=== PATIENT | male | born 1945 | race African-American/Black ===

== ENCOUNTER 2016-12-30 00:42 | Emergency (ER) | payer MEDICARE, OTHER ==
[~2016-12-30] VITALS: Ht 182.9 cm; Wt 70.0 kg
[2016-12-30] VITALS (7 sets, daily range): BP systolic 145–181; BP diastolic 88–100; PULSE 62–72; RESP 19–23; TEMP 98.6; O2SAT 98–100
[2016-12-30] MEDS ORDERED: SODIUM CHLORIDE 0.9% FLUSH 10 ML FLUSH IVF PRN ×2 (01:00→01:15)
[2016-12-30 01:39] LABS: AUTOMATED NEUTROPHIL # 3.8 TH/MM3 (1.8-7.7); BASOPHIL # 0.1 TH/MM3 (0-0.2); BASOPHIL % 0.8 % (0.0-2.0); EOSINOPHIL # 0.2 TH/MM3 (0-0.4); EOSINOPHIL % 3.1 % (0.0-4.0); HEMATOCRIT 35.1 % (39.0-51.0); HEMO FLAGS DIFF FINAL; LYMPH % 33.2 % (9.0-44.0); LYMPHOCYTE # 2.4 TH/MM3 (1.0-4.8); MEAN CELL VOLUME 86.8 FL (80.0-100.0); MEAN CORPUSCULAR HEMOGLOBIN 28.2 PG (27.0-34.0); MEAN CORPUSCULAR HGB CONC 32.5 % (32.0-36.0); MONO % 9.8 % (0.0-8.0); NEUT % 53.1 % (16.0-70.0); PLATELET COUNT 203 TH/MM3 (150-450); RED BLOOD COUNT 4.05 MIL/MM3 (4.50-5.90); RED CELL DISTRIBUTION WIDTH 14.5 % (11.6-17.2); WHITE BLOOD COUNT 7.1 TH/MM3 (4.0-11.0)
[2016-12-30 01:49] LABS: APTT (PATIENT) 23.5 SEC (24.3-30.1); INTERNATIONAL NORMALIZED RATIO 0.9 RATIO; PROTHROMBIN TIME - PATIENT 10.3 SEC (9.8-11.6)
--- NOTE | 2016-12-30 01:50 | RADRPT ---
EXAM DATE/TIME: 12/30/2016 01:36 [facility] COMPARISON: No previous studies available for comparison. INDICATIONS : Short of breath. MEDICAL HISTORY : None. SURGICAL HISTORY : None. Endo graft ENCOUNTER: Initial ACUITY: 1 day PAIN SCORE: 7/10 LOCATION: Bilateral chest FINDINGS: A single view of the chest demonstrates marked tortuosity and ectasia/aneurysm of the thoracic aorta with endovascular stent graft for treatment of the same. Heart size is normal. Lungs are clear withou t effusion. Osseous structures are intact. CONCLUSION: 1. Plain film findings characteristic of an endovascular stent graft repair for thoracic aortic aneur ysm. 2. Lungs are clear without effusion. Heart size is normal. Dhruv Carver MD on December 30, 2016 at 1:47 Board Certified Radiologist. This report was verified electronically.
[2016-12-30 02:05] LABS: ALKALINE PHOSPHATASE 84 U/L (45-117); TOTAL BILIRUBIN ADULT 0.5 MG/DL (0.2-1.0)
[2016-12-30 02:16] LABS: ALT (GPT) 48 U/L (12-78); ANION GAP 8 MEQ/L (5-15); AST (GOT) 44 U/L (15-37); BICARBONATE 24.9 MEQ/L (21.0-32.0); BLOOD UREA NITROGEN 15 MG/DL (7-18); CHLORIDE 112 MEQ/L (98-107); GLOMERULAR FILTRATION RATE 54 ML/MIN (>89); POTASSIUM 3.7 MEQ/L (3.5-5.1); SODIUM (NA) 145 MEQ/L (136-145)
--- NOTE | 2016-12-30 07:10 | PD ---
HPI Chief Complaint: Respiratory Symptoms Time Seen by Provider: 00:57 Travel History International Travel<30 days: No Contact w/Intl Traveler<30days: No Traveled to known affect area: No History of Present Illness HPI Patient is a 71 year old male who comes in complaining of SOB. He says he has occasional SOB and going to the door and breathing the outside air makes him feel better. He says he believes that the humidity is causing his SOB. He denies any chest pain. He says he just moved here from [place] 5 days ago. He denies nausea or vomiting. He denies cough or cold. He denies fever or chills. PFSH Past Medical History AAA: Yes Cardiac Catheterization: Yes Coronary Artery Disease: Yes Diminished Hearing: No Hypertension: Yes Tetanus Vaccination: Unknown Past Surgical History Other Surgery: Yes (hernia) Social History Alcohol Use: Yes Tobacco Use: No Substance Use: Yes (marijuana) Allergies-Medications (Allergen,Severity, Reaction): Coded Allergies: No Known Allergies (Unverified , 12/30/16) Reported Meds & Prescriptions Reported Meds & Active Scripts Active Active Prescriptions or Reported Medications Unobtainable Review of Systems Except as stated in HPI: all other systems reviewed are Neg General / Constitutional: No: Fever, Chills HENT: No: Headaches, Lightheadedness Cardiovascular: No: Chest Pain or Discomfort Respiratory: Positive: Shortness of Breath, No: Cough Gastrointestinal: No: Nausea, Vomiting Genitourinary: No: Dysuria Musculoskeletal: No: Myalgias Skin: No Rash, No Change in Pigmentation Neurologic: No: Weakness, Dizziness Physical Exam Narrative GENERAL: Awake and alert, in no acute distress. SKIN: Focused skin assessment warm/dry. HEAD: Atraumatic. Normocephalic. EYES: Pupils equal and round. No scleral icterus. ENT: Mucous membranes pink and moist. NECK: Trachea midline. No JVD. CARDIOVASCULAR: Regular rate and rhythm. No murmur appreciated. RESPIRATORY: No accessory muscle use. Clear to auscultation. Breath sounds equal bilaterally. GASTROINTESTINAL: Abdomen soft, non-tender, nondistended. MUSCULOSKELETAL: No obvious deformities. No clubbing. No cyanosis. No edema. NEUROLOGICAL: Awake and alert. No obvious cranial nerve deficits. Motor grossly within normal limits. Normal speech. PSYCHIATRIC: Appropriate mood and affect; insight and judgment normal. Data Data Last Documented VS Vital Signs Date Time Temp Pulse Resp B/P (MAP) Pulse Ox O2 Delivery O2 Flow Rate FiO2 12/30/16 05:00 68 21 145/88 (107) 100 Nasal Cannula 2.00 12/30/16 00:53 98.6 Orders Orders Sodium Chloride 0.9% Flush (Ns Flush) (12/30/16 01:00) Complete Blood Count With Diff (12/30/16 01:11) Comprehensive Metabolic Panel (12/30/16 01:11) B-Type Natriuretic Peptide (12/30/16 01:11) Act Partial Throm Time (Ptt) (12/30/16 01:11) Prothrombin Time / Inr (Pt) (12/30/16 01:11) Troponin I (12/30/16 01:11) Iv Access Insert/Monitor (12/30/16 01:11) Electrocardiogram (12/30/16 01:11) Ecg Monitoring (12/30/16 01:11) Oximetry (12/30/16 01:11) Oxygen Administration (12/30/16 01:11) Chest, Single Ap (12/30/16 01:11) Sodium Chloride 0.9% Flush (Ns Flush) (12/30/16 01:15) D-Dimer (12/30/16 02:24) Ventilation & Perfusion Scan (12/30/16 ) Labs Laboratory Tests Test 12/30/16 01:20 12/30/16 02:35 White Blood Count 7.1 TH/MM3 Red Blood Count 4.05 MIL/MM3 Hemoglobin 11.4 GM/DL Hematocrit 35.1 % Mean Corpuscular Volume 86.8 FL Mean Corpuscular Hemoglobin 28.2 PG Mean Corpuscular Hemoglobin Concent 32.5 % Red Cell Distribution Width 14.5 % Platelet Count 203 TH/MM3 Mean Platelet Volume 7.0 FL Neutrophils (%) (Auto) 53.1 % Lymphocytes (%) (Auto) 33.2 % Monocytes (%) (Auto) 9.8 % Eosinophils (%) (Auto) 3.1 % Basophils (%) (Auto) 0.8 % Neutrophils # (Auto) 3.8 TH/MM3 Lymphocytes # (Auto) 2.4 TH/MM3 Monocytes # (Auto) 0.7 TH/MM3 Eosinophils # (Auto) 0.2 TH/MM3 Basophils # (Auto) 0.1 TH/MM3 CBC Comment DIFF FINAL Differential Comment Prothrombin Time 10.3 SEC Prothromb Time International Ratio 0.9 RATIO Activated Partial Thromboplast Time 23.5 SEC Blood Urea Nitrogen 15 MG/DL Creatinine 1.53 MG/DL Random Glucose 96 MG/DL Total Protein 8.2 GM/DL Albumin 3.1 GM/DL Calcium Level 8.2 MG/DL Alkaline Phosphatase 84 U/L Aspartate Amino Transf (AST/SGOT) 44 U/L Alanine Aminotransferase (ALT/SGPT) 48 U/L Total Bilirubin 0.5 MG/DL Sodium Level 145 MEQ/L Potassium Level 3.7 MEQ/L Chloride Level 112 MEQ/L Carbon Dioxide Level 24.9 MEQ/L Anion Gap 8 MEQ/L Estimat Glomerular Filtration Rate 54 ML/MIN Troponin I LESS THAN 0.02 NG/ML B-Type Natriuretic Peptide 115 PG/ML D-Dimer Quantitative (PE/DVT) 9.46 MG/L [facility] Medical Decision Making Medical Screen Exam Complete: Yes Emergency Medical Condition: Yes Differential Diagnosis Pneumonia vs anxiety vs PE Narrative Course Patient is a 71 year old male who comes in complaining of SOB. Exam shows no acute abnormalities. IV established, labs sent. Labs show an elevated D- dimer. Patient is allergic to contrast dye. VQ scan ordered. Patient is resting comfortably. CXR shows no acute abnormalities. Patient signed out to Dr. Post to follow up scan and disposition the patient. Scripts Unable to Obtain Active Prescriptions or Reported Meds Condition: Stable Dina Atkinson MD Dec 30, 2016 07:10
--- NOTE | 2016-12-30 10:40 | RADRPT ---
EXAM DATE/TIME: 12/30/2016 09:45 [facility] COMPARISON: No previous studies available for comparison. INDICATIONS : Dyspnea. DOSE: 1.6 mCi Tc99m DTPA 8.8 mCi Tc99m MAA MEDICAL HISTORY : Hypertension. Aneurysm, abdominal. Cardiovascular disease SURGICAL HISTORY : Umbilical hernia repair. ENCOUNTER: Initial ACUITY: 1 day PAIN SCALE: 0/10 LOCATION: chest TECHNIQUE: Following five minutes of tidal breathing of DTPA aerosol, planar images of the lungs were performed in eight projections. The patient was then injected with MAA, and eight-view perfusion scan was perf ormed. FINDINGS: There is a homogeneous pattern of aerosol delivery to the periphery of both lungs. No focal ventilat ory defects are seen. Mild central deposition of radiotracer The perfusion lung scan demonstrates a homogenous pattern of uptake in both lungs. No segmental or s ubsegmental defects are seen. CONCLUSION: Normal examination. No significant filling defects are identified on the perfusion images. Martínez Siegel MD on December 30, 2016 at 10:38 Board Certified Radiologist. This report was verified electronically.
--- NOTE | 2016-12-30 11:18 | PD ---
Data Data Last Documented VS Vital Signs Date Time Temp Pulse Resp B/P (MAP) Pulse Ox O2 Delivery O2 Flow Rate FiO2 12/30/16 11:00 62 19 170/91 (117) 100 Nasal Cannula 2.00 12/30/16 00:53 98.6 Orders Orders Sodium Chloride 0.9% Flush (Ns Flush) (12/30/16 01:00) Complete Blood Count With Diff (12/30/16 01:11) Comprehensive Metabolic Panel (12/30/16 01:11) B-Type Natriuretic Peptide (12/30/16 01:11) Act Partial Throm Time (Ptt) (12/30/16 01:11) Prothrombin Time / Inr (Pt) (12/30/16 01:11) Troponin I (12/30/16 01:11) Iv Access Insert/Monitor (12/30/16 01:11) Electrocardiogram (12/30/16 01:11) Ecg Monitoring (12/30/16 01:11) Oximetry (12/30/16 01:11) Oxygen Administration (12/30/16 01:11) Chest, Single Ap (12/30/16 01:11) Sodium Chloride 0.9% Flush (Ns Flush) (12/30/16 01:15) D-Dimer (12/30/16 02:24) Ventilation & Perfusion Scan (12/30/16 ) Labs Laboratory Tests Test 12/30/16 01:20 12/30/16 02:35 White Blood Count 7.1 TH/MM3 Red Blood Count 4.05 MIL/MM3 Hemoglobin 11.4 GM/DL Hematocrit 35.1 % Mean Corpuscular Volume 86.8 FL Mean Corpuscular Hemoglobin 28.2 PG Mean Corpuscular Hemoglobin Concent 32.5 % Red Cell Distribution Width 14.5 % Platelet Count 203 TH/MM3 Mean Platelet Volume 7.0 FL Neutrophils (%) (Auto) 53.1 % Lymphocytes (%) (Auto) 33.2 % Monocytes (%) (Auto) 9.8 % Eosinophils (%) (Auto) 3.1 % Basophils (%) (Auto) 0.8 % Neutrophils # (Auto) 3.8 TH/MM3 Lymphocytes # (Auto) 2.4 TH/MM3 Monocytes # (Auto) 0.7 TH/MM3 Eosinophils # (Auto) 0.2 TH/MM3 Basophils # (Auto) 0.1 TH/MM3 CBC Comment DIFF FINAL Differential Comment Prothrombin Time 10.3 SEC Prothromb Time International Ratio 0.9 RATIO Activated Partial Thromboplast Time 23.5 SEC Blood Urea Nitrogen 15 MG/DL Creatinine 1.53 MG/DL Random Glucose 96 MG/DL Total Protein 8.2 GM/DL Albumin 3.1 GM/DL Calcium Level 8.2 MG/DL Alkaline Phosphatase 84 U/L Aspartate Amino Transf (AST/SGOT) 44 U/L Alanine Aminotransferase (ALT/SGPT) 48 U/L Total Bilirubin 0.5 MG/DL Sodium Level 145 MEQ/L Potassium Level 3.7 MEQ/L Chloride Level 112 MEQ/L Carbon Dioxide Level 24.9 MEQ/L Anion Gap 8 MEQ/L Estimat Glomerular Filtration Rate 54 ML/MIN Troponin I LESS THAN 0.02 NG/ML B-Type Natriuretic Peptide 115 PG/ML D-Dimer Quantitative (PE/DVT) 9.46 MG/L [facility] Medical Record Reviewed: Yes Supervised Visit with DAYNA: No Narrative Course CBC & BMP Diagram 12/30/16 01:20 Total Protein 8.2, Albumin 3.1 L, Calcium Level 8.2 L, Alkaline Phosphatase 84, Aspartate Amino Transf (AST/SGOT) 44 H, Alanine Aminotransferase (ALT/SGPT) 48, Total Bilirubin 0.5 BNP 115 Last 24 hours Impressions Chest X-Ray 12/30/16 0111 Signed Impressions: Service Date/Time: December 01:36 - CONCLUSION: 1. Plain film findings characteristic of an endovascular stent graft repair for thoracic aortic aneurysm. 2. Lungs are clear without effusion. Heart size is normal. Dhruv Carver MD Lung Scan-V Nuclear Medicine 12/30/16 0000 Signed Impressions: Service Date/Time: December 09:45 - CONCLUSION: Normal examination. No significant filling defects are identified on the perfusion images. Martínez Siegel MD The patient is resting comfortably and feels better, is alert and in no distress. The patients results and examination findings were discussed. The repeat examination is unremarkable and benign. The history, exam, diagnostic testing, and current condition do not suggest any significant pathology to warrant further testing, continued ED treatment, admission, or surgical evaluation at this point. The vital signs have been stable. The patient does not have uncontrollable pain, intractable vomiting, or other significant symptoms. The patient's condition is stable and appropriate for discharge. The patient will pursue further outpatient evaluation with a primary care physician or other designated or consulting physician as indicated in the discharge instructions. The patient expressed understanding and was agreeable with this plan. Diagnosis Primary Impression: Shortness of breath Referrals: Isaiah Ren MD, Pedro R MD special events director Kiarra Workman Jr., MD, Vincent G DO special events director Primary Care Physician call for appointment Med/Other Pt SpecificInfo: No Change to Meds Scripts Albuterol 8.5 GM Inh (Proair Hfa 8.5 GM Inh) 90 Mcg/Act Aer 2 PUFF INH Q6H Y for SHORTNESS OF BREATH, #1 INHALER 0 Refills 108 mcg/actuation Prov: Owen Post MD 12/30/16 Disposition: 01 DISCHARGE HOME Condition: Stable Owen Post MD Dec 30, 2016 11:18
[2016-12-30] MEDS ORDERED: ALBUAER3 INH (11:31)
--- NOTE | 2016-12-30 17:51 | EKG ---
Date Performed: 12/30/2016 Time Performed: 01:09:31 PTAGE: 71 years EKG: Sinus rhythm MARKED LEFT AXIS DEVIATION VOLTAGE CRITERIA FOR LVH NONSPECIFIC T-WAVE ABNORMALITY ABNORMAL ECG NO PREVIOUS TRACING DOCTOR: Matteo Canseco Interpretating Date/Time 12/30/2016 17:51:00
== END 2016-12-30 13:15 | disposition home or self-care (01) ==
LOC: NEPC 00:42 → EDBD 00:42 → NEPD 13:15
DX: R06.02 Shortness of breath (principal); I10 Essential (primary) hypertension; R94.31 Abnormal electrocardiogram [ECG] [EKG]; Z86.79 Personal history of other diseases of the circulatory system
CPT/HCPCS: 71010; 78582; 80053; 83880; 84484; 85025; 85379; 85610; 85730; 93005; 99285; A9540; A9567

== ENCOUNTER 2017-07-09 16:57 | Emergency (ER) | payer MEDICARE ==
[~2017-07-09] VITALS: Ht 182.9 cm; Wt 70.0 kg
[~2017-07-09 16:57] MED LIST: ALBUAER3 INH
[2017-07-09 17:08] VITALS: BP 121/65; PULSE 63; RESP 17; TEMP 98.3; O2SAT 99
--- NOTE | 2017-07-09 22:13 | PD ---
HPI Chief Complaint: Complaint Time Seen by Provider: 20:47 Travel History International Travel<30 days: No Contact w/Intl Traveler<30days: No Traveled to known affect area: No History of Present Illness HPI This patient complains of difficulty urinating. Duration 2 weeks. Severity is moderate. He has to strain and then dribbles out small amounts of urine sometimes. Other times he can urinate decently well enough. He is not having any pelvic pain or distention. He doesn't feel like his bladder is overly full at this time. Not having fever. PFSH Past Medical History AAA: Yes Cardiac Catheterization: Yes Coronary Artery Disease: Yes Diminished Hearing: No Hypertension: Yes Past Surgical History Other Surgery: Yes (hernia) Social History Alcohol Use: Yes Tobacco Use: No Substance Use: Yes (marijuana) Allergies-Medications (Allergen,Severity, Reaction): Uncoded Allergies: IV CONTRAST (Allergy, Severe, Anaphylaxis, 12/30/16) Reported Meds & Prescriptions Reported Meds & Active Scripts Active Proair Hfa 8.5 GM Inh (Albuterol Sulfate) 90 Mcg/Act Aer 2 Puff INH Q6H PRN 108 mcg/actuation Review of Systems General / Constitutional: No: Fever HENT: No: Headaches Cardiovascular: No: Chest Pain or Discomfort Physical Exam Narrative GASTROINTESTINAL: Abdomen soft, non-tender, nondistended. Positive bowel sounds. No hepato-splenomegaly, or palpable masses. No guarding. SKIN: Focused skin assessment reveals no rash or ulcers. Skin is warm and dry. Palpation shows no induration or nodules. Psych: Normal mood and affect. Normal insight and judgment. Data Data Last Documented VS Vital Signs Date Time Temp Pulse Resp B/P (MAP) Pulse Ox O2 Delivery O2 Flow Rate FiO2 07/09/17 17:08 98.3 63 17 121/65 (83) 99 MDM Medical Decision Making Medical Screen Exam Complete: Yes Emergency Medical Condition: Yes Medical Record Reviewed: Yes Differential Diagnosis Urinary retention, BPH, urethral stricture Narrative Course I have reviewed the patient's electronic medical record. We discussed urinary retention. He is able to urinate spontaneously and does not need Marin catheter. He has a urologist appointment July 21. Diagnosis Primary Impression: Urinary retention Additional Instructions: Follow up with urologist Med/Other Pt SpecificInfo: Other Disposition: DISCHARGE HOME Condition: Stable Grayson Wasserman MD Jul 09, 2017 22:13
[2017-07-09 22:35] VITALS: BP 122/62
== END 2017-07-09 22:46 | disposition home or self-care (01) ==
LOC: NEPD 16:57
DX: R33.9 Retention of urine, unspecified (principal); I10 Essential (primary) hypertension; I71.4 Abdominal aortic aneurysm, without rupture; Z91.041 Radiographic dye allergy status; F12.90 Cannabis use, unspecified, uncomplicated
CPT/HCPCS: 99281

== ENCOUNTER 2017-10-20 07:30 | Inpatient (IN) ==
[2017-10-21 07:28] VITALS: RESP 20
[2017-10-21 10:16] VITALS: O2SAT 97
[2017-10-21 10:50] VITALS: BP 145/87; TEMP 98
[2017-10-21 10:55] VITALS: PULSE 78
== END 2017-10-21 12:30 | disposition home or self-care (01) ==
LOC: NEPC 07:30 → NEDA 10:55 → HCPC 12:39
PROVIDERS: ADMIT Hospitalist; ATTEND Hospitalist

== ENCOUNTER 2017-10-26 17:49 | Observation (INO) ==
[2017-10-26] MEDS ORDERED: Labetalol HCl Inj 100 MG/20 ML Vial IV.PUSH ONE ×2 (20:26→21:48)
--- NOTE | 2017-10-26 21:17 | XR ---
EXAM DATE: 10/26/2017 9:11 PM EDT AGE/SEX: 72 years / Male INDICATIONS: Chest pain. CLINICAL DATA: This is the patient's sequela encounter. Patient reports that signs and symptoms have been present for 3 days and indicates a pain score of 5/10. MEDICAL/SURGICAL HISTORY: . Thoracic aortic aneurysm. . Umbilical hernia repair. Thoracic aort ic aneurysm repair. COMPARISON: [facility], CHEST 1V SINGLE AP, 10/20/2017. [facility], CHEST SINGLE AP, 12/30/2016. . FINDINGS: There is an aortic stent graft seen at the proximal descending thoracic aorta. There is aneurysmal di latation of the surrounding aorta. This appearance is unchanged from the prior exam. The heart size i s normal. The lungs are clear. The previously seen right perihilar consolidation has cleared. CONCLUSION: Stable chest x-ray with an aortic stent graft in place. The lungs are clear. Electronically signed by: Kevin Carney MD 10/26/2017 9:15 PM EDT
--- NOTE | 2017-10-26 21:17 | ED ---
HPI General Chief complaint: Medical Clearance Stated complaint: high Blood pressure since new meds/per pt Time Seen by Provider: 10/26/17 20:12 Source: patient, RN notes reviewed and old records reviewed Mode of arrival: ambulatory History of Present Illness HPI narrative: 72yM presenting with elevated blood pressure and chest discomfort. The patient states that he was diagnosed with pneumonia earlier in the week and started on levaquin; for the past 2 days he's noticed his blood pressure has been elevated to the 180s/100s but he normally runs in the 140s/ 90s. He admits to occasional substernal discomfort which is non-radiating, gradual onset, mild to moderate, and which he attributes to coughing. Family history non-contributory. Related Data Home Medications Medication Instructions Recorded Confirmed Aspir-81 81 mg PO DAILY 10/20/17 10/26/17 Lipitor 50 mg PO DAILY 10/20/17 10/26/17 metoprolol succinate 100 mg PO DAILY 10/26/17 10/26/17 lisinopril 40 mg PO DAILY 10/27/17 10/27/17 Previous Rx's Medication Instructions Recorded levofloxacin [Levaquin] 750 mg PO DAILY #5 tab 10/21/17 Allergies Allergy/AdvReac Type Severity Reaction Status Date / Time Penicillins Allergy Hives Verified 10/26/17 20:29 IV CONTRAST Allergy Severe Anaphylaxis Uncoded 10/26/17 20:29 Review of Systems Except as stated in HPI: all other systems reviewed are negative Constitutional Denies fever(s) Eyes Denies blurry vision ENT Denies nasal congestion Cardiovascular Denies syncope Respiratory Reports cough Gastrointestinal Denies nausea Genitourinary Denies dysuria Musculoskeletal Denies muscle weakness Neurologic Denies confusion Psychiatric Denies confusion [facility] Medical History Medical History Hypertension (Chronic) Surgical History Surgical History H/O heart artery stent (Acute) Family History Family History Father Family history of cancer Social History Social History Substance History: No History of Abuse Second Hand Smoke Exposure: No Smoking Status: Never smoker Tobacco Type: Cigarettes How Often Do You Have a Drink Containing Alcohol: Never Recent Travel in [facility] within the Last 8 Weeks: No Recent Out of Country Travel within the Last 8 Weeks: No Immunization History Tetanus Immunization: >5 Years Hx Influenza Vaccine This Season: Yes Exam Narrative Exam Narrative: GEN: Well-nourished well-developed male, no acute distress HEENT: NCAT, PERRL CARDIO: Regular rate and rhythm PULM: Diminished at bases bilaterally, no wheezing or rhonchi ABD: Soft, non-tender, non-distended EXT/MS: No lower extremity edema, warm and well-perfused SKIN: No rashes NEURO: GCS 15, A&Ox3, no focal deficits PSYCH: Normal affect Course Initial Documented Vital Signs Temperature 98.1 F 10/26/17 17:56 Pulse Rate 75 10/26/17 17:56 Respiratory Rate 20 10/26/17 17:56 Blood Pressure 206/124 H 10/26/17 17:56 Pulse Oximetry 98 10/26/17 17:56 Last Documented Vital Signs Temperature 98.1 F 10/26/17 17:56 Pulse Rate 71 10/27/17 11:10 Respiratory Rate 17 10/27/17 11:10 Blood Pressure 133/79 10/27/17 11:10 Pulse Oximetry 96 10/27/17 11:10 Sign Out Sign Out Data: Patient Sign Out occurred on 10/26/17 at 23:00. Patient's care was discussed, and care was transferred from Sera Benz DO to Daryl Oliveros MD. Sign Out Comment: Due for 2nd troponin, dose of hydralazine ordered for persistent hypertension. If BP does not improve, will likely need nitro gtt and admission to [facility]. Discussed with Dr. Oliveros. Last updated by Sera Benz DO at 10/26/17 23:00 Post-Handoff Eval: Patient seen and examined by me after sign out at [address] Lamar Torres, is a 72-year-old male presents emergency department with chest pain intermittent shortness of breath. Recent admission for taking his antibiotics because he thinks it is contributing to his high blood pressure. No clinical signs of pneumonia today, chest x-ray negative. Initial EKG troponin negative, nitroglycerin sublingually and transdermally given to control blood pressure and symptoms. He is feeling much better after this. Discussed with him chest pain center observation and will need to follow-up with primary care physician for further management of blood pressure. Medical Decision Making MDM Narrative Medical decision making narrative: Assessment: 72yM presenting with elevated blood pressure Plan: EKG and monitor Labs CXR BP control Reassess Differential Diagnosis Differential Diagnosis: Differential diagnosis includes, but is not limited to: asymptomatic hypertension, musculoskeletal pain, pleuritis, worsening pneumonia , low overall suspicion for ACS Medical Records Medical records reviewed: Yes I reviewed the patient's medical records. Lab Data Lab results reviewed: Yes I reviewed the patient's lab results. Result diagrams: 10/26/17 20:30 10/26/17 20:30 Lab Results 10/26/17 10/26/17 10/26/17 Range/Units 20:30 20:30 23:15 WBC 8.7 (4.0-11.0) th/mm3 RBC 4.53 (4.50-5.90) mil/mm3 Hgb 13.0 (13.0-17.0) gm/dL Hct 39.4 (39.0-51.0) % MCV 87.0 (80.0-100.0) fL MCH 28.7 (27.0-34.0) pg MCHC 32.9 (32.0-36.0) % RDW 15.6 (11.6-17.2) % Plt Count 192 D (150-450) th/mm3 MPV 7.3 (7.0-11.0) fL Neut % (Auto) 59.3 (16.0-70.0) % Lymph % (Auto) 26.9 (9.0-44.0) % Burt % (Auto) 11.1 H (0.0-8.0) % Eos % (Auto) 2.3 (0.0-4.0) % Baso % (Auto) 0.4 (0.0-2.0) % Neut # (Auto) 5.2 (1.8-7.7) th/mm3 Lymph # (Auto) 2.3 (1.0-4.8) th/mm3 Burt # (Auto) 1.0 H (0.0-0.9) th/mm3 Eos # (Auto) 0.2 (0.0-0.4) th/mm3 Baso # (Auto) 0.0 (0.0-0.2) th/mm3 WBC Differential . Differential Comment Auto diff final Sodium 139 (136-145) meq/L Potassium 3.6 (3.5-5.1) meq/L Chloride 102 (98-107) meq/L Carbon Dioxide 26.4 (21.0-32.0) meq/L Anion Gap 11 (5-15) meq/L BUN 21 H (7-18) mg/dL Creatinine 1.74 H (0.60-1.30) mg/dL Estimated GFR 47 L (>89) mL/min Random Glucose 83 (74-106) mg/dL Calcium 9.0 (8.5-10.1) mg/dL Total Creatine Kinase (39-308) U/L Troponin I 0.02 0.04 (0.02-0.05) ng/mL 10/27/17 Range/Units 03:50 WBC (4.0-11.0) th/mm3 RBC (4.50-5.90) mil/mm3 Hgb (13.0-17.0) gm/dL Hct (39.0-51.0) % MCV (80.0-100.0) fL MCH (27.0-34.0) pg MCHC (32.0-36.0) % RDW (11.6-17.2) % Plt Count (150-450) th/mm3 MPV (7.0-11.0) fL Neut % (Auto) (16.0-70.0) % Lymph % (Auto) (9.0-44.0) % Burt % (Auto) (0.0-8.0) % Eos % (Auto) (0.0-4.0) % Baso % (Auto) (0.0-2.0) % Neut # (Auto) (1.8-7.7) th/mm3 Lymph # (Auto) (1.0-4.8) th/mm3 Burt # (Auto) (0.0-0.9) th/mm3 Eos # (Auto) (0.0-0.4) th/mm3 Baso # (Auto) (0.0-0.2) th/mm3 WBC Differential Differential Comment Sodium (136-145) meq/L Potassium (3.5-5.1) meq/L Chloride (98-107) meq/L Carbon Dioxide (21.0-32.0) meq/L Anion Gap (5-15) meq/L BUN (7-18) mg/dL Creatinine (0.60-1.30) mg/dL Estimated GFR (>89) mL/min Random Glucose (74-106) mg/dL Calcium (8.5-10.1) mg/dL Total Creatine Kinase 42 (39-308) U/L Troponin I 0.04 (0.02-0.05) ng/mL Imaging Data Radiologist's impression: ITS Impressions Chest X-Ray 10/26/17 20:24 CONCLUSION: Stable chest x-ray with an aortic stent graft in place. The lungs are clear. ECG Data Interpretation: Rate: 70 BPM Rhythm: Sinus [place]: Left Intervals: Normal intervals, no blocks, QTc 420 ms Q waves: III, aVF T waves: Upright, no inversions ST segments: No elevations or depressions Impression: Non-specific EKG, no changes as compared to EKG from 10/20/2017. Discharge Plan Discharge Disposition Patient Disposition: 30 Still Patient Discharge Condition Condition: Stable Discharge Details Diagnosis: Chest pain, Hypertensive urgency Physicians Team ED Provider: Daryl Oliveros Primary Care Provider: UNKNOWN, Attending Provider: Isaiah Brambila Discharge Interventions Interventions: Vital Signs Last Done: 10/26/17 23:00 Status ED Status: Admitted Observation Patient
[2017-10-26 21:20] LABS: Baso % (Auto) 0.4 % (0.0-2.0); Eos # (Auto) 0.2 th/mm3 (0.0-0.4); Eos % (Auto) 2.3 % (0.0-4.0); Hematocrit 39.4 % (39.0-51.0); Lymph # (Auto) 2.3 th/mm3 (1.0-4.8); Lymph % (Auto) 26.9 % (9.0-44.0); Mean Corpuscular HGB Conc 32.9 % (32.0-36.0); Mean Corpuscular Hemoglobin 28.7 pg (27.0-34.0); Mean Platelet Volume 7.3 fL (7.0-11.0); Mono % (Auto) 11.1 % (0.0-8.0); Neut # (Auto) 5.2 th/mm3 (1.8-7.7); Neut % (Auto) 59.3 % (16.0-70.0); Platelet Count 192 th/mm3 (150-450); Red Blood Count 4.53 mil/mm3 (4.50-5.90); Red Cell Distribution Width 15.6 % (11.6-17.2); White Blood Count 8.7 th/mm3 (4.0-11.0)
[2017-10-26 21:40] LABS: Carbon Dioxide 26.4 meq/L (21.0-32.0); Potassium 3.6 meq/L (3.5-5.1)
[2017-10-26 21:44] LABS: Troponin I 0.02 ng/mL (0.02-0.05)
[2017-10-26] MEDS ORDERED: hydrALAZINE HCl Inj 20 MG/ML Vial IV.PUSH ONE (22:50)
[2017-10-27 04:36] LABS: Troponin I 0.04 ng/mL (0.02-0.05)
[2017-10-27] MEDS ORDERED: Acetaminophen 500 MG Tablet PO PRN (07:20)
[2017-10-27] MEDS ORDERED: Lisinopril 20 MG Tablet PO SCH (09:00)
[2017-10-27] MEDS ORDERED: levoFLOXacin 750 MG Tablet PO SCH (09:00)
[2017-10-27] MEDS ORDERED: amLODIPine 10 MG Tablet PO SCH (09:00)
--- NOTE | 2017-10-27 09:46 | P.HPCA ---
History of Present Illness Primary Care Physician: UNKNOWN Chief Complaint: Hypertension History of Present Illness: This is a 72-year-old male that presents to ED via private vehicle with complaint of hypertension. States that he has been doing with blood pressure issues for about a week. States he was hospitalized for pneumonia recently and upon reviewing record he was hospitalized October 20 for pneumonia and was placed on Levaquin. She took Levaquin for 2 days while at home but found his blood pressure to be high so he stopped taking it. Records also indicate that he was started on hydralazine. He states he may have the bottle at home but thought it was an antibiotic and he just never took it. States he has continued to take lisinopril 40 mg daily and metoprolol succinate 100 mg daily. Denies having any chest discomforts. Denies shortness of breath, nausea, or diaphoresis. History of aortic aneurysm repair with stent. There is family history of CAD. Patient is a non-smoker. - Diagnosis (1) Hypertension (2) History of aortic aneurysm repair Inpatient Certification: I certify that the inpatient services were ordered in accordance with Medicare regulations governing the order. This includes certification that hospital inpatient services are reasonable and necessary and in the case of services not specified as inpatient-only under 42 CFR 419.22(n), that they are appropriately provided as inpatient services in accordance to with the 2-midnight benchmark under 43 CFR 412.3(e) Review of Systems General: Patient denies fevers, chills, and recent travel. HEENT: Denied having a headache initially but states it is having nitroglycerin headache has developed. Patient denies sore throat, difficulty swallowing. Cardiovascular: Denies chest discomfort as mentioned above. Question was asked several times and again denied chest discomfort. Denies sensation of heart beating rapidly or irregularly. No syncope. Respiratory: Denies shortness of breath or inspirational chest discomfort. Denies coughing wheezing or hemoptysis. GI: Patient denies nausea, vomiting, diarrhea, abdominal pain, bloody stools. Musculoskeletal: Patient denies joint pain or edema. Denies calf pain or edema. Neurovascular: Patient denies numbness, tingling, weakness in extremities. Denies headache. Endocrine: Denies polyuria and polydipsia. Hematologic: Denies easy bruising. Skin: Denies rash or itching. PMFSH - History History Provided By: Patient - Medical History Medical History: Medical History (Last Reviewed 10/26/17 @ 21:22 by Sera Benz DO) Hypertension (Chronic) - Surgical History Surgical History: Surgical History (Last Reviewed 10/26/17 @ 21:22 by Sera Benz DO) H/O heart artery stent (Acute) - Family History Family History: Family History (Last Reviewed 10/26/17 @ 21:22 by Sera Benz DO) Father Family history of cancer - Tobacco History Second Hand Smoke Exposure: No Tobacco Use In Past 30 Days: No Smoking Status: Never smoker Tobacco Type: Cigarettes - Alcohol History How Often Do You Have a Drink Containing Alcohol: Never - Substance Use History Substance History: No History of Abuse - Travel History Recent Travel in the [place] Within the Last 8 Weeks: No Recent Travel Out of the Country Within the Last 8 Weeks: No - Immunization History Tetanus Immunization: >5 Years Hx Influenza Vaccine This Season: Yes Medications and Allergies Active Medications: Active Medications Acetaminophen (Tylenol) 500 mg PO Q6H PRN PRN Reason: pain scale 1-5 Last Admin: 10/27/17 09:11 Dose: 500 mg Amlodipine Besylate (Norvasc) 10 mg PO DAILY [facility] Last Admin: 10/27/17 09:12 Dose: 10 mg Clonidine HCl (Catapres) 0.1 mg PO Q6H PRN PRN Reason: SBP >165 OR DBP > 110 Levofloxacin (Levaquin) 750 mg PO DAILY [facility] Last Admin: 10/27/17 09:12 Dose: 750 mg Lisinopril (Prinivil) 40 mg PO DAILY [facility] Last Admin: 10/27/17 09:11 Dose: 40 mg Metoprolol Succinate (Toprol Xl) 100 mg PO DAILY [facility] Last Admin: 10/27/17 09:12 Dose: 100 mg Sodium Chloride (Ns Flush) 2 ml IV.FLUSH UNSCH PRN PRN Reason: FLUSH AFTER USING IV ACCESS Last Admin: 10/27/17 05:43 Dose: 2 ml Sodium Chloride (Ns Flush) 2 ml IV.FLUSH PRN PRN PRN Reason: FLUSH AFTER USING IV ACCESS Last Admin: 10/27/17 05:44 Dose: 2 ml Sodium Chloride (Ns Flush) 2 ml IV.FLUSH BID [facility] Last Admin: 10/27/17 09:12 Dose: 2 ml Allergies Allergy/AdvReac Type Severity Reaction Status Date / Time Penicillins Allergy Hives Verified 10/26/17 20:29 IV CONTRAST Allergy Severe Anaphylaxis Uncoded 10/26/17 20:29 Home Medications Medication Instructions Recorded Confirmed Type Aspir-81 81 mg PO DAILY 10/20/17 10/26/17 History Lipitor 50 mg PO DAILY 10/20/17 10/26/17 History metoprolol succinate 100 mg PO DAILY 10/26/17 10/26/17 History lisinopril 40 mg PO DAILY 10/27/17 10/27/17 History Exam Vital signs: Vital Signs 10/26/17 17:56 10/26/17 20:21 10/26/17 20:52 Temperature 98.1 F Pulse Rate 75 78 71 Respiratory Rate 20 20 Blood Pressure 206/124 H 224/136 H 208/134 H Pulse Oximetry 98 99 10/26/17 21:26 10/26/17 21:58 10/26/17 23:00 Temperature Pulse Rate 73 82 77 Respiratory Rate 20 Blood Pressure 192/107 H 187/109 H Pulse Oximetry 100 98 10/26/17 23:34 10/27/17 02:31 10/27/17 07:10 Temperature Pulse Rate 77 68 66 Respiratory Rate 20 20 17 Blood Pressure 175/112 H 175/109 H 190/114 H Pulse Oximetry 97 96 10/27/17 07:41 Temperature Pulse Rate 68 Respiratory Rate Blood Pressure Pulse Oximetry 97 Intake & Output 10/26/17 10/27/17 10/27/17 18:59 06:59 18:59 Weight 70.307 kg Narrative: GENERAL: This is a well-nourished, well-developed patient, in no apparent distress. Patient speaks in clear complete sentences. Patient is pleasant. HEENT: Head is atraumatic and normocephalic. Neck is supple without lymphadenopathy and trachea is midline. No JVD or carotid bruits. CARDIOVASCULAR: Regular rate and rhythm without murmurs, gallops, or rubs. RESPIRATORY: Clear to auscultation. Breath sounds equal bilaterally. No wheezes , rales, or rhonchi. Chest wall is nontender. No use of accessory muscles. GASTROINTESTINAL: Abdomen is nontender, nondistended. Abdomen soft. No obvious pulsatile mass or bruit. No CVA tenderness. Strong femoral pulses bilaterally. Normal bowel sounds in all quadrants. MUSCULOSKELETAL: Patient is moving upper and lower extremities freely. No calf tenderness or edema, no Homans sign. Strong pulses in upper and lower extremities. NEUROLOGICAL: Patient is alert and oriented. Cranial nerves 2-12 are grossly intact. No focal deficits and speech is clear. SKIN: No rash and turgor is normal. Results 10/26/17 20:30 10/26/17 20:30 Cardiac Enzymes 10/26/17 10/26/17 10/27/17 Range/Units 20:30 23:15 03:50 Troponin I 0.02 0.04 0.04 (0.02-0.05) ng/mL CBC 10/26/17 Range/Units 20:30 WBC 8.7 (4.0-11.0) th/mm3 RBC 4.53 (4.50-5.90) mil/mm3 Hgb 13.0 (13.0-17.0) gm/dL Hct 39.4 (39.0-51.0) % Plt Count 192 D (150-450) th/mm3 Neut # (Auto) 5.2 (1.8-7.7) th/mm3 Lymph # (Auto) 2.3 (1.0-4.8) th/mm3 [place] # (Auto) 1.0 H (0.0-0.9) th/mm3 Eos # (Auto) 0.2 (0.0-0.4) th/mm3 Baso # (Auto) 0.0 (0.0-0.2) th/mm3 Comprehensive Metabolic Panel 10/26/17 Range/Units 20:30 Sodium 139 (136-145) meq/L Potassium 3.6 (3.5-5.1) meq/L Chloride 102 (98-107) meq/L Carbon Dioxide 26.4 (21.0-32.0) meq/L BUN 21 H (7-18) mg/dL Creatinine 1.74 H (0.60-1.30) mg/dL Calcium 9.0 (8.5-10.1) mg/dL Intake and Output 10/26/17 10/27/17 10/27/17 22:59 06:59 14:59 Other: Weight 70.307 kg EKG interpretations - EKG EKG shows: sinus rhythm (EKGs are sinus rhythm without significant ST segment depressions or elevations.) Caprini VTE Risk Assessment Caprini VTE Risk Assessment: Moderate/High Risk (score >= 2) Caprini Risk Assessment Model: Point Value = 1 Point Value = 2 Point Value = 3 Point Value = 5 Age 41-60 Minor surgery BMI > 25 kg/m2 Swollen legs Varicose veins or History of unexplained or recurrent spontaneous Oral contraceptives or hormone replacement Sepsis (< 1 month) Serious lung disease, including pneumonia (< 1 month) Abnormal pulmonary function Acute myocardial infarction Congestive heart failure (< 1 month) History of inflammatory bowel disease Medical patient at bed rest Age 61-74 Arthroscopic surgery Major open surgery (> 45 min) Laparoscopic surgery (> 45 min) Malignancy Confined to bed (> 72 hours) Immobilizing plaster cast Central venous access Age >= 75 History of VTE Family history of VTE Factor V Leiden Prothrombin [id number] Lupus anticoagulant Anticardiolipin antibodies Elevated serum homocysteine Heparin-induced thrombocytopenia Other congenital or acquired thrombophilia Stroke (< 1 month) Elective arthroplasty Hip, pelvis, or leg fracture Acute spinal cord injury (< 1 month) Prophylaxis Regimen: Total Risk Factor Score Risk Level Prophylaxis Regimen 0-1 Low Early ambulation 2 Moderate Order ONE of the following: *Sequential Compression Device (SCD) *Heparin 5000 units SQ BID 3-4 Higher Order ONE of the following medications: *Heparin 5000 units SQ TID *Enoxaparin/Lovenox 40 mg SQ daily (WT < 150 kg, CrCl > 30 mL/min) *Enoxaparin/Lovenox 30 mg SQ daily (WT < 150 kg, CrCl > 10-29 mL/min) *Enoxaparin/Lovenox 30 mg SQ BID (WT < 150 kg, CrCl > 30 mL/min) AND/OR *Sequential Compression Device (SCD) 5 or more Highest Order ONE of the following medications: *Heparin 5000 units SQ TID (Preferred with Epidurals) *Enoxaparin/Lovenox 40 mg SQ daily (WT < 150 kg, CrCl > 30 mL/min) *Enoxaparin/Lovenox 30 mg SQ daily (WT < 150 kg, CrCl > 10-29 mL/min) *Enoxaparin/Lovenox 30 mg SQ BID (WT < 150 kg, CrCl > 30 mL/min) AND *Sequential Compression Device (SCD) Assessment and Plan - Assessment (1) Hypertension Code(s): I10 - Essential (primary) hypertension Status: Chronic (2) History of aortic aneurysm repair Code(s): Z98.890 - Other specified postprocedural states; Z86.79 - Personal history of other diseases of the circulatory system Status: Acute - Plan * Hypertension: Patient had serial cardiac enzymes and EKGs for ruling out purposes. Patient denied ever having chest discomfort. He was seen by Dr. Isaiah Brambila of cardiology in the chest pain center. His blood pressures have been high. We will resume his lisinopril and metoprolol. Add amlodipine and monitor. Patient will be discharged when blood pressure has stabilized. He should monitor and record blood pressure readings and discuss further with PCP. Return to ED for interval issues. * History of aortic aneurysm repair with endovascular stent: Patient continues follow-up with his physician. He understands importance of good blood pressure control. Patient is stable at this time. He is agreeable to this plan.
--- NOTE | 2017-10-27 13:15 | ECG ---
Date Performed: 10/26/2017 Time Performed: 23:45:19 PTAGE: 72 years EKG: Sinus rhythm MARKED LEFT AXIS DEVIATION POSSIBLE LEFT VENTRICULAR HYPERTROPHY NONSPECIFIC ST & T-WAVE ABNORMALITY PREVIOUS INFERIOR [place] PREVIOUS TRACING : 10/26/2017 20.10 Since previous tracing, no significant change noted DOCTOR: Isaiah Brambila Interpretating Date/Time 10/27/2017 13:14:12
--- NOTE | 2017-10-27 13:17 | ECG ---
Date Performed: 10/26/2017 Time Performed: 20:10:25 PTAGE: 72 years EKG: Sinus rhythm POSSIBLE LEFT ATRIAL ENLARGEMENT MARKED LEFT AXIS DEVIATION POSSIBLE LEFT VENTRICULAR HYPERTROPHY NO NSPECIFIC ST & T-WAVE ABNORMALITY PREVIOUS INFERIOR [place] PREVIOUS TRACING : 10/26/2017 18.06 DOCTOR: Isaiah Brambila Interpretating Date/Time 10/27/2017 13:15:01
--- NOTE | 2017-10-27 13:18 | ECG ---
Date Performed: 10/26/2017 Time Performed: 18:06:34 PTAGE: 72 years EKG: Sinus rhythm VOLTAGE CRITERIA FOR LVH INFERIOR MYOCARDIAL INFARCTION ABNORMAL ECG PREVIOUS TRACING : 10/20/2017 08.25 Since previous tracing, no significant change noted DOCTOR: Isaiah Brambila Interpretating Date/Time 10/27/2017 13:15:27
[2017-10-27] MEDS ORDERED: Sod Chloride 0.9% Inj 1,000 ML IV.SIG ONE (13:25)
== END 2017-10-27 11:30 | disposition home or self-care (01) ==
LOC: NEDA 17:49 → NEDH 17:49 → NEPE 17:49 → NEDH 10-27 04:10
PROVIDERS: ADMIT Internal Medicine Cardiovascular Disease; ATTEND Internal Medicine Cardiovascular Disease

== ENCOUNTER 2018-04-01 19:08 | Observation (INO) ==
--- NOTE | 2018-04-01 19:53 | ED ---
HPI General Chief Complaint: Chest Pain Stated Complaint: respiratory Time Seen by Provider: 04/01/18 19:42 Source: patient Limitations: no limitations History of Present Illness HPI narrative: Chest pain/shortness of breath today, recently at [facility] scheduled for cardiac stents for history of cardiac disease. complaint: Reports chest pain STEMI Alert: No Onset (ago): hour(s) Duration: constant Onset: during rest Pain location: Reports substernal Severity: mild Quality: Reports aching Pain radiation: Reports none Relieving factors: nothing Exacerbating factors: nothing Context: Denies trauma/injury Associated symptoms: Reports dyspnea; Denies syncope, cough and leg swelling Treatments prior to arrival chest pain: Reports none and aspirin Related Data Home Medications Medication Instructions Recorded Confirmed metoprolol succinate 100 mg PO DAILY 10/26/17 04/01/18 lisinopril 40 mg PO DAILY 10/27/17 04/01/18 aspirin 81 mg PO DAILY 03/24/18 04/01/18 labetalol 300 mg PO BID 04/01/18 04/01/18 Previous Rx's Medication Instructions Recorded amlodipine [Norvasc] 10 mg PO DAILY tab 10/27/17 erythromycin 1 applic EACH EYE Q6H #3.5 g 03/24/18 Allergies Allergy/AdvReac Type Severity Reaction Status Date / Time Iodinated Contrast- Oral and Allergy Anaphylaxis Verified 03/25/18 16:25 IV Dye [Contrast] Penicillins Allergy Hives Verified 03/25/18 16:25 Review of Systems ROS: all other systems reviewed are negative Cardiovascular Reports chest pain Respiratory Reports dyspnea [facility] Medical History Medical History Hypertension (Chronic) Social History Social History Substance History: Past History Second Hand Smoke Exposure: No Smoking Status: Former smoker Tobacco Type: Cigarettes How Often Do You Have a Drink Containing Alcohol: Never Recent Travel in [place] within the Last 8 Weeks: No Recent Out of Country Travel within the Last 8 Weeks: No Immunization History Tetanus Immunization: <5 Years Exam Narrative Exam Narrative: NONTOXIC PERRL, EOMI NO JVD NON LABORED RESPIRATIONS, equal bilateral REGULAR RHYTHM Sutures in place left mid/axilla non-draining, nipple line SOFT NON TENDER, no pulsatile mass PELVIS STABLE FROM EXTREMITIES NO LOWER EXTREMITY EDEMA with nontender calves FACIAL SYMMETRY STEADY GAIT, CLEAR SENTENCES Course Reevaluation(s) Reevaluation #1: d/w shireen doe , can admit to chest pain center. Pain-free post nitroglycerin, hemodynamically stable with no signs of acute airway compromise Time: 21:02 Initial Documented Vital Signs Temperature 98 F 04/01/18 19:30 Pulse Rate 80 04/01/18 19:30 Respiratory Rate 20 04/01/18 19:30 Blood Pressure 111/67 04/01/18 19:30 Pulse Oximetry 99 04/01/18 19:30 Last Documented Vital Signs Temperature 98 F 04/01/18 19:30 Pulse Rate 79 04/01/18 19:41 Respiratory Rate 20 04/01/18 19:41 Blood Pressure 138/86 04/01/18 19:41 Pulse Oximetry 98 04/01/18 19:41 Medical Decision Making [facility] Narrative Medical Screen Exam Complete: Yes Emergency Medical Condition: Yes Lab Data Result diagrams: 04/01/18 19:57 04/01/18 19:57 Lab Results 04/01/18 04/01/18 04/01/18 Range/Units 19:57 19:57 19:57 WBC 8.2 (4.0-11.0) th/mm3 RBC 4.17 L (4.50-5.90) mil/mm3 Hgb 12.2 L (13.0-17.0) gm/dL Hct 36.9 L (39.0-51.0) % MCV 88.5 (80.0-100.0) fL MCH 29.4 (27.0-34.0) pg MCHC 33.2 (32.0-36.0) % RDW 15.4 (11.6-17.2) % Plt Count 236 D (150-450) th/mm3 MPV 7.1 (7.0-11.0) fL Neut % (Auto) 76.9 H (16.0-70.0) % Lymph % (Auto) 15.5 (9.0-44.0) % [place] % (Auto) 5.4 (0.0-8.0) % Eos % (Auto) 1.7 (0.0-4.0) % Baso % (Auto) 0.5 (0.0-2.0) % Neut # (Auto) 6.3 (1.8-7.7) th/mm3 Lymph # (Auto) 1.3 (1.0-4.8) th/mm3 [place] # (Auto) 0.4 (0.0-0.9) th/mm3 Eos # (Auto) 0.1 (0.0-0.4) th/mm3 Baso # (Auto) 0.0 (0.0-0.2) th/mm3 WBC Differential . Differential Comment Auto diff final PT 10.2 (9.8-11.6) sec INR 1.0 Ratio APTT 24.7 (23.4-31.7) sec Sodium (136-145) meq/L Potassium (3.5-5.1) meq/L Chloride (98-107) meq/L Carbon Dioxide (21.0-32.0) meq/L Anion Gap (5-15) meq/L BUN (7-18) mg/dL Creatinine (0.60-1.30) mg/dL Estimated GFR (>89) mL/min Random Glucose (74-106) mg/dL Calcium (8.5-10.1) mg/dL Troponin I (0.02-0.05) ng/mL B-Natriuretic Peptide 151 H (0-100) pg/mL //18 Range/Units 19:57 WBC (4.0-11.0) th/mm3 RBC (4.50-5.90) mil/mm3 Hgb (13.0-17.0) gm/dL Hct (39.0-51.0) % MCV (80.0-100.0) fL MCH (27.0-34.0) pg MCHC (32.0-36.0) % RDW (11.6-17.2) % Plt Count (150-450) th/mm3 MPV (7.0-11.0) fL Neut % (Auto) (16.0-70.0) % Lymph % (Auto) (9.0-44.0) % [place] % (Auto) (0.0-8.0) % Eos % (Auto) (0.0-4.0) % Baso % (Auto) (0.0-2.0) % Neut # (Auto) (1.8-7.7) th/mm3 Lymph # (Auto) (1.0-4.8) th/mm3 [place] # (Auto) (0.0-0.9) th/mm3 Eos # (Auto) (0.0-0.4) th/mm3 Baso # (Auto) (0.0-0.2) th/mm3 WBC Differential Differential Comment PT (9.8-11.6) sec INR Ratio APTT (23.4-31.7) sec Sodium 139 (136-145) meq/L Potassium 4.2 (3.5-5.1) meq/L Chloride 108 H (98-107) meq/L Carbon Dioxide 21.8 (21.0-32.0) meq/L Anion Gap 9 (5-15) meq/L BUN 22 H (7-18) mg/dL Creatinine 2.42 H (0.60-1.30) mg/dL Estimated GFR 32 L (>89) mL/min Random Glucose 105 (74-106) mg/dL Calcium 8.6 (8.5-10.1) mg/dL Troponin I Less than 0.02 L (0.02-0.05) ng/mL B-Natriuretic Peptide (0-100) pg/mL Imaging Data Radiologist's impression: Chest X-Ray 04/01/18 19:47 CONCLUSION: No acute cardiopulmonary disease. ECG Data EKG Prior to Arrival: No Attestation: I personally reviewed and interpreted this ECG as follows: (Sinus, no STEMI. DC interval prolonged taking beta-blockers, Q's inferiorly history of OR) Discharge Plan Discharge Disposition Patient Disposition: ED Admit(ED Internal Use Only) Discharge Condition Condition: Stable Discharge Details Diagnosis: Chest pain Physicians Team ED Provider: Maciej Walls Primary Care Provider: UNKNOWN, Rxs /Orders / Referrals /Forms Prescriptions: No Action metoprolol succinate 100 mg Tablet Extended Release 24 Hr 100 mg PO DAILY RF: 0 lisinopril 40 mg Tablet 40 mg PO DAILY RF: 0 amlodipine [Norvasc] 10 mg Tablet 10 mg PO DAILY RF: 0 aspirin 81 mg Tablet,Chewable 81 mg PO DAILY RF: 0 erythromycin 5 mg/gram (0.5 %) ointment 1 applic EACH EYE Q6H Qty: 3.5 RF: 0 labetalol 300 mg Tablet 300 mg PO BID RF: 0 Discharge Instructions Patient Printed Instructions: Chest Pain (ED) Discharge Interventions Interventions: Vital Signs Last Done: 04/01/18 19:41 Status ED Status: With Doctor
[2018-04-01 20:05] LABS: Baso % (Auto) 0.5 % (0.0-2.0); Eos # (Auto) 0.1 th/mm3 (0.0-0.4); Eos % (Auto) 1.7 % (0.0-4.0); Hematocrit 36.9 % (39.0-51.0); Hemoglobin 12.2 gm/dL (13.0-17.0); Lymph # (Auto) 1.3 th/mm3 (1.0-4.8); Lymph % (Auto) 15.5 % (9.0-44.0); Mean Corpuscular HGB Conc 33.2 % (32.0-36.0); Mean Corpuscular Hemoglobin 29.4 pg (27.0-34.0); Mean Corpuscular Volume 88.5 fL (80.0-100.0); Mean Platelet Volume 7.1 fL (7.0-11.0); Mono # (Auto) 0.4 th/mm3 (0.0-0.9); Mono % (Auto) 5.4 % (0.0-8.0); Neut # (Auto) 6.3 th/mm3 (1.8-7.7); Neut % (Auto) 76.9 % (16.0-70.0); Platelet Count 236 th/mm3 (150-450); Red Blood Count 4.17 mil/mm3 (4.50-5.90); Red Cell Distribution Width 15.4 % (11.6-17.2); White Blood Count 8.2 th/mm3 (4.0-11.0)
--- NOTE | 2018-04-01 20:14 | XR ---
EXAM DATE: 04/01/2018 8:11 PM EST AGE/SEX: 72 years / Male INDICATIONS: Chest pain. Patient is scheduled for coronary stent placement this week. CLINICAL DATA: This is the patient's subsequent encounter. Patient reports that signs and symptoms h ave been present for 1 week and indicates a pain score of 7/10. MEDICAL/SURGICAL HISTORY: Hypertension. Thoracic aortic aneurysm. Umbilical hernia repair. ao rtic aneurysm repair. COMPARISON: [facility], CHEST 1V SINGLE AP, 03/25/2018. . FINDINGS: The lungs are clear without infiltrate, nodule, or mass. There is no appreciable pleural effusion for technique. Heart and mediastinum are unremarkable. Again noted is aneurysm of the aort a with endovascular graft not significantly changed. CONCLUSION: No acute cardiopulmonary disease. Electronically signed by: Jaren Reese MD Board Certified Radiologist 04/01/2018 8:13 PM EST
[2018-04-01 20:15] LABS: Activated Partial Thrombo Time 24.7 sec (23.4-31.7); Prothrombin Time 10.2 sec (9.8-11.6)
[2018-04-01 20:22] LABS: Anion Gap 9 meq/L (5-15); Blood Urea Nitrogen 22 mg/dL (7-18); Calcium 8.6 mg/dL (8.5-10.1); Carbon Dioxide 21.8 meq/L (21.0-32.0); Chloride 108 meq/L (98-107); Glomerular Filtration Rate 32 mL/min (>89); Glucose,Random 105 mg/dL (74-106); Potassium 4.2 meq/L (3.5-5.1); Sodium 139 meq/L (136-145)
[2018-04-01] MEDS: Sod Chloride 0.9% Inj 1,000 ML IV.CONT SCH (22:01)
[2018-04-02 00:20] LABS: Creatine Kinase 72 U/L (39-308)
[2018-04-02 03:09] LABS: Creatine Kinase 77 U/L (39-308)
[2018-04-02 07:44] VITALS: BP 183/107; PULSE 86; RESP 16; TEMP 97.4
--- NOTE | 2018-04-02 08:40 | P.HPCA ---
History of Present Illness Primary Care Physician: Unknown Chief Complaint: Chest pain History of Present Illness: 72 year old male with known abdominal and thoracic aneurysm and hypertension presents to ER for further evaluation of chest pain. Onset 1730 pm last evening while being discharge from [facility]. Location substernal. Characterized as tightness/pressure. No radiation. No associated symptoms of nausea, vomiting , dyspnea, or diaphoresis. No precipitating or relieving factors. Denies any ripping or tearing sensation, no radiation of discomfort. Reports being scheduled for aneurysm repair/stent Tuesday04/05/18 at [facility]. States he requested his vascular surgeon allow him to go home for a couple a days prior to surgery so he could take care of a few things and visit with family. Endorses telling staff prior to discharge he was experiencing chest discomfort but tells me he really wanted to be discharged so did not stay. On drive from [place] to [place] drank 2 Pepsi hopeful Pepsi would resolved discomfort. Once back in [place] continued to experience chest pain therefore came to er for further evaluation. Duration approx 2-3 hours. No further chest discomfort. Endorses similar discomfort on 03/25/18 when evaluated in [facility] being transferred to [facility] due to Thoracic Aorta CT results suggesting dissection. Endorses upon discharge from [facility] the vascular surgeon gave her his phone number and was told to call for any further chest pain. Past cardiac testing Reports cardiac catheterization completed during last week hospital stay at [facility]. States being told he would need open heart surgery however due to complexity of aneurysm the decision to repair aneurysm first (04/05/18) was made. Social history Known hypertension. No known coronary artery disease, diabetes, or hyperlipidemia. Former smoker, quit 40+ years ago. Rare alcohol use on weekends while watching football. Family history Noncontributory for early onset cardiovascular disease. Endorses all family members Istria of hypertension - Diagnosis (1) Aneurysm of descending thoracic aorta (2) Hypertension Review of Systems All other systems reviewed negative except as stated in HPI [facility] - History History Provided By: Patient - Medical History Medical History: Medical History (Last Updated 04/02/18 @ 10:58 by MARLIN Harris) Hypertension (Chronic) Abdominal aneurysm Thoracic aortic aneurysm - Surgical History Surgical History: Surgical History (Last Updated 04/02/18 @ 10:59 by MARLIN Harris) H/O heart artery stent (Acute) History of thoracic aortic aneurysm repair S/P hernia surgery - Family History Family History: Family History (Last Updated 04/02/18 @ 10:59 by MARLIN Harris) Father Family history of cancer Hypertension Mother Hypertension - Tobacco History Second Hand Smoke Exposure: No Tobacco Use In Past 30 Days: No Smoking Status: Former smoker (quit 40 years ago) Tobacco Type: Cigarettes - Alcohol History How Often Do You Have a Drink Containing Alcohol: 2 to 3 times a week - Substance Use History Substance History: No History of Abuse - Substance Use Type Crack/Cocaine Status: Sustained Remission Route Used: By Mouth, Inhalation Reason for Use: Get High - Travel History Recent Travel in the [place] Within the Last 8 Weeks: No Recent Travel Out of the Country Within the Last 8 Weeks: No - Immunization History Tetanus Immunization: <5 Years Medications and Allergies Active Medications: Active Medications Amlodipine Besylate (Norvasc) 10 mg PO DAILY [facility] Sodium Chloride (Ns Inj) 1,000 mls @ 100 mls/hr IV.CONT .Q10H [facility] Last Admin: 04/01/18 22:01 Dose: 100 mls/hr Labetalol HCl (Trandate) 300 mg PO BID [facility] Lisinopril (Prinivil) 40 mg PO DAILY [facility] Sodium Chloride (Ns Flush) 2 ml IV.FLUSH UNSCH PRN PRN Reason: FLUSH AFTER USING IV ACCESS Sodium Chloride (Ns Flush) 2 ml IV.FLUSH BID [facility] Last Admin: 04/01/18 22:01 Dose: 2 ml Sodium Chloride (Ns Flush) 2 ml IV.FLUSH PRN PRN PRN Reason: FLUSH AFTER USING IV ACCESS Allergies Allergy/AdvReac Type Severity Reaction Status Date / Time Iodinated Contrast- Oral and Allergy Anaphylaxis Verified 03/25/18 16:25 IV Dye [Contrast] Penicillins Allergy Hives Verified 03/25/18 16:25 Home Medications Medication Instructions Recorded Confirmed Type lisinopril 40 mg PO DAILY 10/27/17 04/01/18 History aspirin 81 mg PO DAILY 03/24/18 04/01/18 History labetalol 300 mg PO BID 04/01/18 04/01/18 History Exam Vital signs: Vital Signs 04/01/18 19:30 04/01/18 19:41 04/01/18 22:19 Temperature 98 F Pulse Rate 80 79 80 Respiratory Rate 20 20 16 Blood Pressure 111/67 138/86 118/70 Pulse Oximetry 99 98 98 04/01/18 23:35 04/02/18 01:33 04/02/18 05:52 Temperature 97.6 F Pulse Rate 87 85 75 Respiratory Rate 16 20 Blood Pressure 130/88 139/80 Pulse Oximetry 98 98 04/02/18 07:40 Temperature 97.4 F L Pulse Rate 86 Respiratory Rate 16 Blood Pressure 183/107 H Pulse Oximetry 97 Intake & Output 04/01/18 04/02/18 04/02/18 18:59 06:59 18:59 Weight 70.307 kg Other: # Voids 1 Date of Last Bowel Movement 04/01/18 04/01/18 Narrative: GENERAL: Alert WN, WD, NAD, pleasant, thin, -[place] male HEAD: NC, AT EYES: Sclera clear, conjunctiva without injection, pupils equal and round ENT: Mucous membranes pink and moist NECK: Supple, no masses, trachea midline CV: RRR, without murmur, rub, gallop, no JVD, S1-S2. RESP: Diminished lungs throughout bilateral, no crackles, wheeze, rhonchi, symmetrical chest rise, nonlabored, able to speak in full sentences ABD: Soft, NT, ND, no masses, positive bowel tones BACK: No scoliosis EXT: Pulses +2x4, no dependent edema MS: Normal tone x4 extremities, nontender, no obvious deformities, full range of motion NEURO: Motor strength 5/5, gait WNL PSYCH: A+O x3, pleasant affect, appropriate speech, mood, insight and judgment SKIN: Normal turgor, normal texture, no lesions, no rashes, brisk cap refill, even hair distribution Results 04/01/18 19:57 04/01/18 19:57 Cardiac Enzymes 04/01/18 04/01/18 04/01/18 Range/Units 19:57 19:57 23:22 Troponin I Less than 0.02 L Less than 0.02 L (0.02-0.05) ng/mL B-Natriuretic Peptide 151 H (0-100) pg/mL 04/02/18 Range/Units 02:10 Troponin I Less than 0.02 L (0.02-0.05) ng/mL B-Natriuretic Peptide (0-100) pg/mL Coagulation 04/01/18 04/01/18 Range/Units 19:57 19:57 PT 10.2 (9.8-11.6) sec APTT 24.7 (23.4-31.7) sec B-Natriuretic Peptide 151 H (0-100) pg/mL CBC 04/01/18 Range/Units 19:57 WBC 8.2 (4.0-11.0) th/mm3 RBC 4.17 L (4.50-5.90) mil/mm3 Hgb 12.2 L (13.0-17.0) gm/dL Hct 36.9 L (39.0-51.0) % Plt Count 236 D (150-450) th/mm3 Neut # (Auto) 6.3 (1.8-7.7) th/mm3 Lymph # (Auto) 1.3 (1.0-4.8) th/mm3 Leake # (Auto) 0.4 (0.0-0.9) th/mm3 Eos # (Auto) 0.1 (0.0-0.4) th/mm3 Baso # (Auto) 0.0 (0.0-0.2) th/mm3 Comprehensive Metabolic Panel 04/01/18 Range/Units 19:57 Sodium 139 (136-145) meq/L Potassium 4.2 (3.5-5.1) meq/L Chloride 108 H (98-107) meq/L Carbon Dioxide 21.8 (21.0-32.0) meq/L BUN 22 H (7-18) mg/dL Creatinine 2.42 H (0.60-1.30) mg/dL Calcium 8.6 (8.5-10.1) mg/dL Intake and Output 04/01/18 04/02/18 04/02/18 22:59 06:59 14:59 Other: # Voids 1 Date of Last Bowel Movement 04/01/18 04/01/18 Weight 70.307 kg - Imaging and Cardiology Imaging: Impressions Chest X-Ray 04/01/18 19:47 CONCLUSION: No acute cardiopulmonary disease. EKG interpretations - EKG EKG results cardiology: sinus rhythm (Left axis deviation, nonspecific ST-T segment changes) Caprini VTE Risk Assessment Caprini VTE Risk Assessment: Moderate/High Risk (score >= 2) Caprini Risk Assessment Model: Point Value = 1 Point Value = 2 Point Value = 3 Point Value = 5 Age 41-60 Minor surgery BMI > 25 kg/m2 Swollen legs Varicose veins or History of unexplained or recurrent spontaneous Oral contraceptives or hormone replacement Sepsis (< 1 month) Serious lung disease, including pneumonia (< 1 month) Abnormal pulmonary function Acute myocardial infarction Congestive heart failure (< 1 month) History of inflammatory bowel disease Medical patient at bed rest Age 61-74 Arthroscopic surgery Major open surgery (> 45 min) Laparoscopic surgery (> 45 min) Malignancy Confined to bed (> 72 hours) Immobilizing plaster cast Central venous access Age >= 75 History of VTE Family history of VTE Factor V Leiden Prothrombin [id number] Lupus anticoagulant Anticardiolipin antibodies Elevated serum homocysteine Heparin-induced thrombocytopenia Other congenital or acquired thrombophilia Stroke (< 1 month) Elective arthroplasty Hip, pelvis, or leg fracture Acute spinal cord injury (< 1 month) Prophylaxis Regimen: Total Risk Factor Score Risk Level Prophylaxis Regimen 0-1 Low Early ambulation 2 Moderate Order ONE of the following: *Sequential Compression Device (SCD) *Heparin 5000 units SQ BID 3-4 Higher Order ONE of the following medications: *Heparin 5000 units SQ TID *Enoxaparin/Lovenox 40 mg SQ daily (WT < 150 kg, CrCl > 30 mL/min) *Enoxaparin/Lovenox 30 mg SQ daily (WT < 150 kg, CrCl > 10-29 mL/min) *Enoxaparin/Lovenox 30 mg SQ BID (WT < 150 kg, CrCl > 30 mL/min) AND/OR *Sequential Compression Device (SCD) 5 or more Highest Order ONE of the following medications: *Heparin 5000 units SQ TID (Preferred with Epidurals) *Enoxaparin/Lovenox 40 mg SQ daily (WT < 150 kg, CrCl > 30 mL/min) *Enoxaparin/Lovenox 30 mg SQ daily (WT < 150 kg, CrCl > 10-29 mL/min) *Enoxaparin/Lovenox 30 mg SQ BID (WT < 150 kg, CrCl > 30 mL/min) AND *Sequential Compression Device (SCD) Assessment and Plan - Assessment (1) Aneurysm of descending thoracic aorta Code(s): I71.2 - Thoracic aortic aneurysm, without rupture Status: Chronic Plan: Admit to chest pain center. ACS ruled out 3 sets of EKGs and cardiac enzymes. Seen and evaluated by Dr. Tom Silva. Dr. Silva discussed in length importance of us contacting his vascular surgeon which would likely result in transferring him back to [facility] for close monitoring. Patient does not wish to return to [facility] until scheduled surgery Tuesday. Risks of leaving AMA discussed and made aware of risk of risk of if aneurysm dissected. Verbalized understanding however still wished to go home this morning. (2) Hypertension Code(s): I10 - Essential (primary) hypertension Status: Chronic Plan: Continue amlodipine, lisinopril, and metoprolol. Discussed importance of tight blood pressure control and sodium restriction. Dietary modification education provided. H&P: Quality - VTE Deep Vein Thrombosis/Pulmonary Embolism Present on Admission: No
[2018-04-02] MEDS ORDERED: amLODIPine 10 MG Tablet PO SCH (09:00)
[2018-04-02] MEDS ORDERED: Lisinopril 20 MG Tablet PO SCH (09:00)
--- NOTE | 2018-04-02 09:20 | P.PNCA ---
Subjective Interval history: Mr. Hazel is a 72-year-old black male with a very complicated history who was seen together with the nurse practitioner. He was just discharged from [facility] in [place] where he was sent for a dissecting aneurysm. He was scheduled for a new procedure to implant a stent in his aorta at this coming Tuesday but apparently had insisted on returning home before that procedure. He was discharged with the surgeons name and cell phone number should he have recurrent problems. On the way home he developed tightness in his chest again similar to his original presentation. This was 7 out of 10 and lasted for about an hour and a half until he came to the emergency room here. Subsequently has resolved completely. His entire present illness is reviewed and the nurse practitioner documentation. After extensive discussion here regarding contacting [facility] for transfer back the patient once again insists that he has to go home before he can go back to [facility]. He was made pointedly aware that a dissection could occur rapidly and could kill him before he was able to even seek medical attention. In spite of this he insists that he needs to go home before being hospitalized again. We made it clear to him that he has the right to sign out AMA and he states that he wishes to do this but still wants to go back to [facility] on Tuesday as scheduled. In spite of leaving against advice he is strongly encouraged to return to [place] as directed. Medications and Allergies Active Medications: Active Medications Amlodipine Besylate (Norvasc) 10 mg PO DAILY [facility] Sodium Chloride (Ns Inj) 1,000 mls @ 100 mls/hr IV.CONT .Q10H [facility] Last Admin: 04/01/18 22:01 Dose: 100 mls/hr Labetalol HCl (Trandate) 300 mg PO BID [facility] Lisinopril (Prinivil) 40 mg PO DAILY [facility] Sodium Chloride (Ns Flush) 2 ml IV.FLUSH UNSCH PRN PRN Reason: FLUSH AFTER USING IV ACCESS Sodium Chloride (Ns Flush) 2 ml IV.FLUSH BID [facility] Last Admin: 04/01/18 22:01 Dose: 2 ml Sodium Chloride (Ns Flush) 2 ml IV.FLUSH PRN PRN PRN Reason: FLUSH AFTER USING IV ACCESS Allergies Allergy/AdvReac Type Severity Reaction Status Date / Time Iodinated Contrast- Oral and Allergy Anaphylaxis Verified 03/25/18 16:25 IV Dye [Contrast] Penicillins Allergy Hives Verified 03/25/18 16:25 Home Medications Medication Instructions Recorded Confirmed Type metoprolol succinate 100 mg PO DAILY 10/26/17 04/01/18 History lisinopril 40 mg PO DAILY 10/27/17 04/01/18 History aspirin 81 mg PO DAILY 03/24/18 04/01/18 History labetalol 300 mg PO BID 04/01/18 04/01/18 History Physical Exam Vital signs: Vital Signs 04/01/18 19:30 04/01/18 19:41 04/01/18 22:19 Temperature 98 F Pulse Rate 80 79 80 Respiratory Rate 20 20 16 Blood Pressure 111/67 138/86 118/70 Pulse Oximetry 99 98 98 04/01/18 23:35 04/02/18 01:33 04/02/18 05:52 Temperature 97.6 F Pulse Rate 87 85 75 Respiratory Rate 16 20 Blood Pressure 130/88 139/80 Pulse Oximetry 98 98 04/02/18 07:40 Temperature 97.4 F L Pulse Rate 86 Respiratory Rate 16 Blood Pressure 183/107 H Pulse Oximetry 97 Intake & Output 04/01/18 04/02/18 04/02/18 18:59 06:59 18:59 Weight 70.307 kg Other: # Voids 1 Date of Last Bowel Movement 04/01/18 04/01/18 Narrative: Physical examination is as documented on the chart Eyes PERRLA EOMI sclera clear Mouth mucous membranes moist and well papillated no lesions Neck supple no JVD masses nodes or bruits in both carotid pulses are intact Chest diminished breath sounds but clear with no rales wheezes or rhonchi Cardiovascular PMI is not displaced there is a regular rhythm no gallop rub or murmur is appreciated Abdomen soft nontender no masses and no guarding or rebound Extremities no clubbing cyanosis or edema Results 04/01/18 19:57 04/01/18 19:57 Cardiac Enzymes 04/01/18 04/01/18 04/01/18 Range/Units 19:57 19:57 23:22 Troponin I Less than 0.02 L Less than 0.02 L (0.02-0.05) ng/mL B-Natriuretic Peptide 151 H (0-100) pg/mL 04/02/18 Range/Units 02:10 Troponin I Less than 0.02 L (0.02-0.05) ng/mL B-Natriuretic Peptide (0-100) pg/mL Coagulation 18 04/01/18 Range/Units 19:57 19:57 PT 10.2 (9.8-11.6) sec APTT 24.7 (23.4-31.7) sec B-Natriuretic Peptide 151 H (0-100) pg/mL CBC 04/01/18 Range/Units 19:57 WBC 8.2 (4.0-11.0) th/mm3 RBC 4.17 L (4.50-5.90) mil/mm3 Hgb 12.2 L (13.0-17.0) gm/dL Hct 36.9 L (39.0-51.0) % Plt Count 236 D (150-450) th/mm3 Neut # (Auto) 6.3 (1.8-7.7) th/mm3 Lymph # (Auto) 1.3 (1.0-4.8) th/mm3 Leslie # (Auto) 0.4 (0.0-0.9) th/mm3 Eos # (Auto) 0.1 (0.0-0.4) th/mm3 Baso # (Auto) 0.0 (0.0-0.2) th/mm3 Comprehensive Metabolic Panel 04/01/18 Range/Units 19:57 Sodium 139 (136-145) meq/L Potassium 4.2 (3.5-5.1) meq/L Chloride 108 H (98-107) meq/L Carbon Dioxide 21.8 (21.0-32.0) meq/L BUN 22 H (7-18) mg/dL Creatinine 2.42 H (0.60-1.30) mg/dL Calcium 8.6 (8.5-10.1) mg/dL Intake and Output 04/01/18 04/02/18 04/02/18 22:59 06:59 14:59 Other: # Voids 1 Date of Last Bowel Movement 04/01/18 04/01/18 Weight 70.307 kg - Imaging and Cardiology Imaging: Impressions Chest X-Ray 04/01/18 19:47 CONCLUSION: No acute cardiopulmonary disease. Assessment and Plan - Plan Even after being made aware that his problems could be life-threatening the patient insists that he must return home before he has further hospitalization. He will be leaving [place] but was instructed to return to [place] as he is scheduled to do. He was also given detailed instructions regarding avoiding salt in his diet and keeping his blood pressure down under control carefully maintaining his medications
[2018-04-02] MEDS: Sod Chloride 0.9% Inj 1,000 ML IV.CONT SCH (09:34)
[2018-04-02 10:23] VITALS: O2SAT 96
--- NOTE | 2018-04-02 11:49 | ECG ---
Date Performed: 04/01/2018 Time Performed: 19:48:50 PTAGE: 72 years EKG: Sinus rhythm LEFT ANTERIOR FASCICULAR BLOCK INFERIOR MYOCARDIAL INFARCTION Nonspecific T-wave changes ABNORMAL EC G PREVIOUS TRACING : 03/25/2018 16.18 Compared to previous tracing, Nonspecific T-waves are more prominent in the lateral leads. DOCTOR: Isaiah Brambila Interpretating Date/Time 04/02/2018 11:48:20
== END 2018-04-02 11:47 | disposition left against medical advice (07) ==
LOC: NEPC 19:08 → NEDA 19:08 → NEPHCDU 04-02 01:29
PROVIDERS: ADMIT Internal Medicine Interventional Cardiology; ATTEND Internal Medicine Interventional Cardiology
DX: Z79.899 Other long term (current) drug therapy; Z79.82 Long term (current) use of aspirin; Z80.9 Family history of malignant neoplasm, unspecified; Z88.0 Allergy status to penicillin; Z95.5 Presence of coronary angioplasty implant and graft; I10 Essential (primary) hypertension; Z87.891 Personal history of nicotine dependence; R06.02 Shortness of breath; I71.2 Thoracic aortic aneurysm, without rupture; R07.89 Other chest pain; I25.10 Atherosclerotic heart disease of native coronary artery without angina pectoris; I25.2 Old myocardial infarction; I71.4 Abdominal aortic aneurysm, without rupture

== ENCOUNTER 2018-04-10 22:38 | Observation (INO) ==
--- NOTE | 2018-04-10 23:20 | ED ---
HPI General Chief complaint: Abdominal Pain Stated complaint: GI Complaint Time Seen by Provider: 04/10/18 23:04 Source: patient Mode of arrival: EMS Limitations: no limitations History of Present Illness HPI narrative: 72-year-old male came to the emergency room brought by EMS for chest pain. As per the paramedics patient was complaining left-sided chest pain upon their arrival. They gave him 4 baby aspirin's after which the chest pain resolved as per the patient but then he started complaining of left upper quadrant abdominal pain. Patient has a significant past history of thoracic aortic dissection with a repair done at [facility] in [place] 10 days back. Patient was discharged 1 week ago. Since his discharge patient has been in this emergency room 5 times. Most of them was related to chest pain. Patient is very vague about his history. I suspect some element of dementia. He could not explain to me properly the surgery that was done and said that he had "a heart stent put in". Vital signs are stable. He does not appear to be in any significant distress. No aggravating or relieving symptoms identified for the pain. Related Data Home Medications Medication Instructions Recorded Confirmed aspirin 81 mg PO DAILY 03/24/18 04/16/18 labetalol 300 mg PO BID 04/01/18 04/16/18 Previous Rx's Medication Instructions Recorded amlodipine [Norvasc] 10 mg PO DAILY tab 10/27/17 ciprofloxacin HCl 500 mg PO BID 7 Days #14 tab 04/14/18 tamsulosin [Flomax] 0.4 mg PO DAILY #10 cap 04/14/18 Allergies Allergy/AdvReac Type Severity Reaction Status Date / Time Iodinated Contrast- Oral and Allergy Anaphylaxis, Verified 04/16/18 19:53 IV Dye Desquamation. [Contrast] Penicillins Allergy Hives Verified 04/16/18 19:53 Review of Systems ROS: all other systems reviewed are negative [facility] Medical History Medical History Hypertension (Chronic) Abdominal aneurysm (Acute) Thoracic aortic aneurysm (Acute) Surgical History Surgical History H/O heart artery stent (Acute) History of thoracic aortic aneurysm repair (Acute) S/P hernia surgery (Acute) Family History Family History Father Family history of cancer Hypertension Mother Hypertension Social History Social History Substance History: No History of Abuse Second Hand Smoke Exposure: No Smoking Status: Former smoker Tobacco Type: Cigarettes How Often Do You Have a Drink Containing Alcohol: 2 to 3 times a week Recent Travel in [facility] within the Last 8 Weeks: No Recent Out of Country Travel within the Last 8 Weeks: No Immunization History Tetanus Immunization: <5 Years Exam Narrative Exam Narrative: GENERAL: Awake, alert, mild to SKIN: Focused skin assessment warm/dry. Significant ecchymosis on the left side of his chest with surgical wound on the left supraclavicular area and left anterior axillary margin below the left breast. The surgical wound appears to be healing well. No discharge. HEAD: Atraumatic. Normocephalic. EYES: Pupils equal and round. No scleral icterus. No injection or drainage. ENT: No nasal bleeding or discharge. Mucous membranes pink and moist. NECK: Trachea midline. No JVD. CARDIOVASCULAR: Regular rate and rhythm. No murmur appreciated. RESPIRATORY: No accessory muscle use. Clear to auscultation. Breath sounds equal bilaterally. GASTROINTESTINAL: Abdomen soft, non-tender, nondistended. Hepatic and splenic margins not palpable. MUSCULOSKELETAL: No obvious deformities. No clubbing. No cyanosis. No edema. NEUROLOGICAL: Awake and alert. No obvious cranial nerve deficits. Motor grossly within normal limits. Normal speech. PSYCHIATRIC: Appropriate mood and affect; insight and judgment normal. Course Initial Documented Vital Signs Temperature 97.7 F 04/10/18 22:46 Pulse Rate 99 H 04/10/18 22:46 Respiratory Rate 20 04/10/18 22:46 Blood Pressure 157/86 H 04/10/18 22:46 Pulse Oximetry 98 04/10/18 22:46 Last Documented Vital Signs Temperature 97.3 F L 04/13/18 07:32 Pulse Rate 66 04/13/18 08:00 Respiratory Rate 17 04/13/18 07:32 Blood Pressure 126/74 04/13/18 07:32 Pulse Oximetry 98 04/13/18 07:32 Medical Decision Making MDM Narrative Medical decision making narrative: 12:22 AM I discussed with the radiologist Dr. Boz regarding this case and the best study to be done to look at the endograft and as per him the ideal study would be CT thoracic aortogram with contrast. However because the patient is allergic to the IV dye he recommended premedication for 13 hours as per the hospital policy. I discussed the case at that point with Dr. Cabral who is on again for vascular surgery. He recommended the patient to be admitted to the hospitalist service and prepare him with the premedication with the intention of getting the CTA for thoracic aorta in the morning. He also wanted to be consulted for the case. Blood test results are back and within acceptable limits. A CT scan of the abdomen has been ordered given his abdominal pain history. The hospitalist has accepted the patient. Medical Screen Exam Complete: Yes Emergency Medical Condition: Yes Medical Records Medical records reviewed: Yes I reviewed the patient's medical records. As per the medical record patient and was seen in the emergency room on 01 April for chest pain where thoracic aortic dissection was diagnosed. Based on this the vascular surgeon Dr. Cabral who was on for the day recommended that patient should be transferred to [facility] at [place] for the repair since it was a complicated case. This led to the transfer and eventually the surgical repair. Patient had a past history of thoracic aorta repair [address] [facility]. Patient was seen on the morning in the emergency department here for chest pain. He had a CT scan of his chest done without contrast because of IV dye allergy and as per the report no major changes were noticed on the CT but limited because of no dye given. Patient was again seen in the emergency department last night for urinary retention and a Marin catheter was placed in discharge. Lab Data Result diagrams: 04/13/18 06:05 04/13/18 06:05 Lab Results 04/10/18 04/10/18 04/10/18 Range/Units 23:21 23:21 23:21 WBC 11.6 H (4.0-11.0) th/mm3 RBC 4.02 L (4.50-5.90) mil/mm3 Hgb 11.8 L (13.0-17.0) gm/dL Hct 35.7 L (39.0-51.0) % MCV 88.8 (80.0-100.0) fL MCH 29.3 (27.0-34.0) pg MCHC 33.0 (32.0-36.0) % RDW 15.2 (11.6-17.2) % Plt Count 159 (150-450) th/mm3 MPV 7.9 (7.0-11.0) fL Neut % (Auto) 79.9 H (16.0-70.0) % Lymph % (Auto) 11.3 (9.0-44.0) % [place] % (Auto) 7.7 (0.0-8.0) % Eos % (Auto) 0.1 (0.0-4.0) % Baso % (Auto) 1.0 (0.0-2.0) % Neut # (Auto) 9.2 H (1.8-7.7) th/mm3 Lymph # (Auto) 1.3 (1.0-4.8) th/mm3 [place] # (Auto) 0.9 (0.0-0.9) th/mm3 Eos # (Auto) 0.0 (0.0-0.4) th/mm3 Baso # (Auto) 0.1 (0.0-0.2) th/mm3 WBC Differential . Differential Comment Auto diff final Sodium 141 (136-145) meq/L Potassium 4.5 (3.5-5.1) meq/L Chloride 107 (98-107) meq/L Carbon Dioxide 24.5 (21.0-32.0) meq/L Anion Gap 10 (5-15) meq/L BUN 27 H (7-18) mg/dL Creatinine 1.72 H (0.60-1.30) mg/dL Estimated GFR 47 L (>89) mL/min Random Glucose 115 H (74-106) mg/dL Calcium 8.5 (8.5-10.1) mg/dL Total Bilirubin 2.5 H (0.2-1.0) mg/dL AST 26 (15-37) U/L ALT 20 (12-78) U/L Alkaline Phosphatase 72 (45-117) U/L Total Creatine Kinase (39-308) U/L Troponin I Less than 0.02 L (0.02-0.05) ng/mL Total Protein 9.1 H (6.4-8.2) g/dL Albumin 3.2 L (3.4-5.0) g/dL Lipase 144 (73-393) U/L Urine Color Yellow (Yellw/Straw) Urine Clarity Clear (Clear) Urine pH 6.0 (5.0-8.5) Ur Specific [place] 1.013 (1.002-1.035) Urine Protein 30 H (Neg-Trace) mg/dL Urine Glucose (UA) Negative (Negative) mg/dL Urine Ketones 20 (Negative) mg/dL Urine Occult Blood Small H (Negative) Urine Nitrate Negative (Negative) Urine Bilirubin Negative (Negative) Urine Urobilinogen 0.2 (Less than 2) mg/dL Ur Leukocyte Esterase Small H (Negative) Urine RBC 5 H (0-3) /hpf Urine WBC 17 H (0-5) /hpf Ur Squamous Epith Cells <1 (0-5) /hpf Urine Bacteria Rare H (None) /hpf Hyaline Casts 3 (0-3) /lpf Micro UA Comment Cath-culture ind Ur Microscopic Review Not Reportable Urine Culture Comments Cath-cult indicated Blood Type Antibody Screen 04/11/18 04/11/18 04/12/18 Range/Units 05:53 11:20 04:59 WBC 12.3 H (4.0-11.0) th/mm3 RBC 3.21 L (4.50-5.90) mil/mm3 Hgb 9.6 L D (13.0-17.0) gm/dL Hct 28.3 L (39.0-51.0) % MCV 88.2 (80.0-100.0) fL MCH 29.9 (27.0-34.0) pg MCHC 33.9 (32.0-36.0) % RDW 15.4 (11.6-17.2) % Plt Count 179 (150-450) th/mm3 MPV 8.0 (7.0-11.0) fL Neut % (Auto) 91.5 H (16.0-70.0) % Lymph % (Auto) 3.4 L (9.0-44.0) % [place] % (Auto) 5.0 (0.0-8.0) % Eos % (Auto) 0.0 (0.0-4.0) % Baso % (Auto) 0.1 (0.0-2.0) % Neut # (Auto) 11.3 H (1.8-7.7) th/mm3 Lymph # (Auto) 0.4 L (1.0-4.8) th/mm3 [place] # (Auto) 0.6 (0.0-0.9) th/mm3 Eos # (Auto) 0.0 (0.0-0.4) th/mm3 Baso # (Auto) 0.0 (0.0-0.2) th/mm3 WBC Differential . Differential Comment Auto diff final Sodium (136-145) meq/L Potassium (3.5-5.1) meq/L Chloride (98-107) meq/L Carbon Dioxide (21.0-32.0) meq/L Anion Gap (5-15) meq/L BUN (7-18) mg/dL Creatinine (0.60-1.30) mg/dL Estimated GFR (>89) mL/min Random Glucose (74-106) mg/dL Calcium (8.5-10.1) mg/dL Total Bilirubin (0.2-1.0) mg/dL AST (15-37) U/L ALT (12-78) U/L Alkaline Phosphatase (45-117) U/L Total Creatine Kinase 49 55 (39-308) U/L Troponin I Less than 0.02 L Less than 0.02 L (0.02-0.05) ng/mL Total Protein (6.4-8.2) g/dL Albumin (3.4-5.0) g/dL Lipase (73-393) U/L Urine Color (Yellw/Straw) Urine Clarity (Clear) Urine pH (5.0-8.5) Ur Specific [place] (1.002-1.035) Urine Protein (Neg-Trace) mg/dL Urine Glucose (UA) (Negative) mg/dL Urine Ketones (Negative) mg/dL Urine Occult Blood (Negative) Urine Nitrate (Negative) Urine Bilirubin (Negative) Urine Urobilinogen (Less than 2) mg/dL Ur Leukocyte Esterase (Negative) Urine RBC (0-3) /hpf Urine WBC (0-5) /hpf Ur Squamous Epith Cells (0-5) /hpf Urine Bacteria (None) /hpf Hyaline Casts (0-3) /lpf Micro UA Comment Ur Microscopic Review Urine Culture Comments Blood Type Antibody Screen 12/26/18 12/27/18 12/27/18 Range/Units 04:59 06:05 06:05 WBC 11.5 H (4.0-11.0) th/mm3 RBC 3.10 L (4.50-5.90) mil/mm3 Hgb 9.2 L (13.0-17.0) gm/dL Hct 27.2 L (39.0-51.0) % MCV 87.6 (80.0-100.0) fL MCH 29.7 (27.0-34.0) pg MCHC 33.9 (32.0-36.0) % RDW 15.2 (11.6-17.2) % Plt Count 210 (150-450) th/mm3 MPV 7.8 (7.0-11.0) fL Neut % (Auto) 75.4 H (16.0-70.0) % Lymph % (Auto) 17.2 (9.0-44.0) % [place] % (Auto) 7.3 (0.0-8.0) % Eos % (Auto) 0.0 (0.0-4.0) % Baso % (Auto) 0.1 (0.0-2.0) % Neut # (Auto) 8.7 H (1.8-7.7) th/mm3 Lymph # (Auto) 2.0 (1.0-4.8) th/mm3 [place] # (Auto) 0.8 (0.0-0.9) th/mm3 Eos # (Auto) 0.0 (0.0-0.4) th/mm3 Baso # (Auto) 0.0 (0.0-0.2) th/mm3 WBC Differential . Differential Comment Auto diff final Sodium 140 144 (136-145) meq/L Potassium 3.3 L D 3.4 L (3.5-5.1) meq/L Chloride 106 112 H (98-107) meq/L Carbon Dioxide 23.0 22.9 (21.0-32.0) meq/L Anion Gap 11 9 (5-15) meq/L BUN 47 H 34 H (7-18) mg/dL Creatinine 1.96 H 1.59 H (0.60-1.30) mg/dL Estimated GFR 41 L 52 L (>89) mL/min Random Glucose 283 H D 123 H D (74-106) mg/dL Calcium 8.3 L 7.5 L D (8.5-10.1) mg/dL Total Bilirubin (0.2-1.0) mg/dL AST (15-37) U/L ALT (12-78) U/L Alkaline Phosphatase (45-117) U/L Total Creatine Kinase (39-308) U/L Troponin I (0.02-0.05) ng/mL Total Protein (6.4-8.2) g/dL Albumin (3.4-5.0) g/dL Lipase (73-393) U/L Urine Color (Yellw/Straw) Urine Clarity (Clear) Urine pH (5.0-8.5) Ur Specific [place] (1.002-1.035) Urine Protein (Neg-Trace) mg/dL Urine Glucose (UA) (Negative) mg/dL Urine Ketones (Negative) mg/dL Urine Occult Blood (Negative) Urine Nitrate (Negative) Urine Bilirubin (Negative) Urine Urobilinogen (Less than 2) mg/dL Ur Leukocyte Esterase (Negative) Urine RBC (0-3) /hpf Urine WBC (0-5) /hpf Ur Squamous Epith Cells (0-5) /hpf Urine Bacteria (None) /hpf Hyaline Casts (0-3) /lpf Micro UA Comment Ur Microscopic Review Urine Culture Comments Blood Type Antibody Screen 04/13/18 Range/Units 06:05 WBC (4.0-11.0) th/mm3 RBC (4.50-5.90) mil/mm3 Hgb (13.0-17.0) gm/dL Hct (39.0-51.0) % MCV (80.0-100.0) fL MCH (27.0-34.0) pg MCHC (32.0-36.0) % RDW (11.6-17.2) % Plt Count (150-450) th/mm3 MPV (7.0-11.0) fL Neut % (Auto) (16.0-70.0) % Lymph % (Auto) (9.0-44.0) % [place] % (Auto) (0.0-8.0) % Eos % (Auto) (0.0-4.0) % Baso % (Auto) (0.0-2.0) % Neut # (Auto) (1.8-7.7) th/mm3 Lymph # (Auto) (1.0-4.8) th/mm3 [place] # (Auto) (0.0-0.9) th/mm3 Eos # (Auto) (0.0-0.4) th/mm3 Baso # (Auto) (0.0-0.2) th/mm3 WBC Differential Differential Comment Sodium (136-145) meq/L Potassium (3.5-5.1) meq/L Chloride (98-107) meq/L Carbon Dioxide (21.0-32.0) meq/L Anion Gap (5-15) meq/L BUN (7-18) mg/dL Creatinine (0.60-1.30) mg/dL Estimated GFR (>89) mL/min Random Glucose (74-106) mg/dL Calcium (8.5-10.1) mg/dL Total Bilirubin (0.2-1.0) mg/dL AST (15-37) U/L ALT (12-78) U/L Alkaline Phosphatase (45-117) U/L Total Creatine Kinase (39-308) U/L Troponin I (0.02-0.05) ng/mL Total Protein (6.4-8.2) g/dL Albumin (3.4-5.0) g/dL Lipase (73-393) U/L Urine Color (Yellw/Straw) Urine Clarity (Clear) Urine pH (5.0-8.5) Ur Specific [place] (1.002-1.035) Urine Protein (Neg-Trace) mg/dL Urine Glucose (UA) (Negative) mg/dL Urine Ketones (Negative) mg/dL Urine Occult Blood (Negative) Urine Nitrate (Negative) Urine Bilirubin (Negative) Urine Urobilinogen (Less than 2) mg/dL Ur Leukocyte Esterase (Negative) Urine RBC (0-3) /hpf Urine WBC (0-5) /hpf Ur Squamous Epith Cells (0-5) /hpf Urine Bacteria (None) /hpf Hyaline Casts (0-3) /lpf Micro UA Comment Ur Microscopic Review Urine Culture Comments Blood Type A Negative Antibody Screen Negative Imaging Data Radiologist's impression: Chest X-Ray 04/10/18 23:09 CONCLUSION: 1. No significant interval change. 2. Status post thoracic endograft placement with stable radiographic appearance of tortuous thoracic aortic aneurysm. Abdomen/Pelvis CT 04/11/18 00:08 CONCLUSION: 1. No definitive acute CT abnormality in the abdomen or pelvis. 2. Partially imaged thoracic aortic endograft terminating near the aortic hiatus and fusiform thoracic aortic aneurysm measuring up to 6.1 cm. This is grossly stable in size from recent prior exam. 3. 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 4. Status post right hemicolectomy. Colonic diverticulosis without definitive evidence for diverticulitis. 5. Additional ancillary findings, as above. Thoracic Aorta CT 04/11/18 14:00 CONCLUSION: 1. Postsurgical features of thoracic aortic aneurysm endograft repair with interval proximal and distal extension of the endograft and left subclavian origin embolization. Endograft appears intact and is widely patent. There is a persistent although smaller endoleak in the proximal thoracic arch in the region of the proximal original endograft. The proximal aneurysm sac is stable measuring 6.2 cm in comparison to 6.3 cm in prior exam. Distally, aneurysm sac is significantly improved following distal extension to 5.3 cm in comparison to 6.5 cm on prior exam. No evidence for leak or rupture. 2. 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 False lumen supplies nonstandard celiac anatomy and main left renal artery. No evidence for rupture or leak. 3. Additional stable ancillary findings, as above. ECG Data Attestation: I personally reviewed and interpreted this ECG as follows: Interpretation: Twelve-lead EKG was reviewed by me. Normal sinus rhythm, frequent multifocal PVCs, left axis deviation, questionable old inferior TN, LVH by voltage criteria. Heart rate of 94 bpm. Discharge Plan Discharge Disposition Patient Disposition: ED Admit(ED Internal Use Only) Discharge Order Discharge Orders: Discharge Order (Routine); Ordered 04/13/18 Ordered By: Kayy Walden Vascular Surgery Clear for Discharge (Routine); Ordered 04/11/18 Ordered By: Daryl Cabral ED Use Only Admit Order (Routine); Ordered 04/11/18 Ordered By: Ron Hodge Discharge Details Anticipated Discharge Date: 04/13/18 Physicians Team ED Provider: Ron Hodge Primary Care Provider: UNKNOWN, Attending Provider: Kayy Walden Other Providers: [facility],Insurance ; Daryl Cabral Status ED Status: Left Department Discharge Information Discharge Date/Time: 04/11/18 03:06
[2018-04-10 23:32] LABS: Baso # (Auto) 0.1 th/mm3 (0.0-0.2); Eos % (Auto) 0.1 % (0.0-4.0); Hematocrit 35.7 % (39.0-51.0); Hemoglobin 11.8 gm/dL (13.0-17.0); Lymph # (Auto) 1.3 th/mm3 (1.0-4.8); Lymph % (Auto) 11.3 % (9.0-44.0); Mean Corpuscular Hemoglobin 29.3 pg (27.0-34.0); Mean Corpuscular Volume 88.8 fL (80.0-100.0); Mean Platelet Volume 7.9 fL (7.0-11.0); Mono # (Auto) 0.9 th/mm3 (0.0-0.9); Mono % (Auto) 7.7 % (0.0-8.0); Neut # (Auto) 9.2 th/mm3 (1.8-7.7); Neut % (Auto) 79.9 % (16.0-70.0); Platelet Count 159 th/mm3 (150-450); Red Blood Count 4.02 mil/mm3 (4.50-5.90); Red Cell Distribution Width 15.2 % (11.6-17.2); White Blood Count 11.6 th/mm3 (4.0-11.0)
[2018-04-10 23:40] LABS: Bacteria,Urine Rare /hpf; Bilirubin,Urine Negative (Negative); Clarity,Urine Clear (Clear); Color,Urine Yellow (Yellw/Straw); Glucose,Urine (UA) Negative (Negative); Hyaline Casts,Urine 3 /lpf (0-3); Leukocyte Esterase,Urine Small (Negative); Nitrite,Urine Negative (Negative); Specific Gravity,Urine 1.013 (1.002-1.035); Squamous Epithelial Cell,Urine <1 /hpf (0-5); Urobilinogen,Urine 0.2 mg/dL (Less than 2)
[2018-04-10] MEDS ORDERED: Morphine Inj 4 MG/ML Vial IV.PUSH ONE (23:47)
[2018-04-10 23:48] LABS: Alanine Aminotransferase 20 U/L (12-78); Albumin 3.2 g/dL (3.4-5.0); Anion Gap 10 meq/L (5-15); Aspartate Aminotransferase 26 U/L (15-37); Blood Urea Nitrogen 27 mg/dL (7-18); Calcium 8.5 mg/dL (8.5-10.1); Carbon Dioxide 24.5 meq/L (21.0-32.0); Chloride 107 meq/L (98-107); Glomerular Filtration Rate 47 mL/min (>89); Glucose,Random 115 mg/dL (74-106); Lipase 144 U/L (73-393); Sodium 141 meq/L (136-145)
--- NOTE | 2018-04-10 23:49 | XR ---
EXAM DATE: 04/10/2018 11:33 PM EST AGE/SEX: 72 years / Male INDICATIONS: Chest pain. CLINICAL DATA: This is the patient's initial encounter. Patient reports that signs and symptoms have been present for 1 day and indicates a pain score of 4/10. MEDICAL/SURGICAL HISTORY: . Hypertension. Thoracic aortic aneurysm. . Umbilical hernia repair. Aortic aneurysm repair. COMPARISON: [facility] [place], CHEST 1V SINGLE AP, 04/09/2018. . FINDINGS: No significant new focal pleural or parenchymal opacities. There is a thoracic endograft in place wit h stable tortuous thoracic aortic aneurysm. Cardiomediastinal contours are otherwise stable. Remainde r of exam is unchanged. CONCLUSION: 1. No significant interval change. 2. Status post thoracic endograft placement with stable radiographic appearance of tortuous thoracic aortic aneurysm. Electronically signed by: Dilan Orantes MD Board Certified Radiologist 04/10/2018 11:[address]
[2018-04-10 23:52] LABS: Alkaline Phosphatase 72 U/L (45-117); Total Protein 9.1 g/dL (6.4-8.2)
[2018-04-10 23:54] LABS: Potassium 4.5 meq/L (3.5-5.1)
[2018-04-11] MEDS ORDERED: Acetaminophen 325 MG Tablet PO PRN (00:45)
[2018-04-11] MEDS ORDERED: Bisacodyl 10 MG Supp RECTAL PRN (00:45)
--- NOTE | 2018-04-11 01:03 | CT ---
EXAM DATE: 04/11/2018 12:48 AM EST AGE/SEX: 72 years / Male INDICATIONS: Abdomen pain past 2 days. Post thoracic stent placement. CLINICAL DATA: This is the patient's initial encounter. Patient reports that signs and symptoms have been present for 2 days and indicates a pain score of 8/10. MEDICAL/SURGICAL HISTORY: Cardiovascular disease. Hypertension. Aneurysm, abdominal. Abdomina l aortic aneurysm repair. Coronary artery stent. Thoracic anuersym repair. RADIATION DOSE: 12.59 CTDI (mGy) COMPARISON: [facility] [place]OR ABD AORTA W CONTRAST W 3D, 03/25/2018. . TECHNIQUE: Multiple contiguous axial images were obtained through the abdomen. Images were obtained using multiple row detector helical technique. Using automated exposure control and adjustment of the mA and/or kV according to patient size, radiation dose was kept as low as reasonably achievable to o btain optimal diagnostic quality images. DICOM format image data is available electronically for rev iew and comparison. FINDINGS: LOWER LUNGS: Mild compressive atelectasis at the left lung base. LIVER: Diffusely homogeneous density without intrahepatic ductal dilatation or volume loss. SPLEEN: Homogeneous density without enlargement. PANCREAS: Grossly unremarkable. KIDNEYS: Redemonstration of renal cortical scarring in the superior pole the left kidney. Bilateral renal cystic lesions unchanged from recent prior exam. No radiopaque renal calculi or hydronephrosis. ADRENAL GLANDS: Unremarkable. AORTA: Partially imaged thoracic aortic endograft which terminates at the aortic hiatus. Partially im aged fusiform thoracic aortic aneurysm measuring up to 6.1 cm. Redemonstration of focal dissection of the suprarenal aorta at the level of the celiac and SMA. This is not fully evaluated due to lack of contrast. Infrarenal aorta is normal in caliber measuring up to 2.3 cm. BOWEL/MESENTERY: Mild sigmoid diverticulosis without gross inflammatory change to suggest diverticul itis. Patient is status post right hemicolectomy. Several loops of nondistended fluid-filled ileum in the mid pelvis. No free fluid or drainable fluid collections. No pneumatosis or free air. ABDOMINAL WALL: Small fat-containing superior anterior abdominal wall hernias. BLADDER: Decompressed secondary to Marin catheter. REPRODUCTIVE: Grossly unremarkable. BONY STRUCTURES: Mild degenerative spondylosis of the lower lumbar spine. CONCLUSION: 1. No definitive acute CT abnormality in the abdomen or pelvis. 2. Partially imaged thoracic aortic endograft terminating near the aortic hiatus and fusiform thorac ic aortic aneurysm measuring up to 6.1 cm. This is grossly stable in size from recent prior exam. 3. Focal dissection of the suprarenal aorta at the level of the celiac and SMA which is not evaluate d due to lack of contrast. 4. Status post right hemicolectomy. Colonic diverticulosis without definitive evidence for diverticu litis. 5. Additional ancillary findings, as above. Electronically signed by: Dilan Orantes MD Board Certified Radiologist 04/11/2018 1:02 AM FAISLA Espinoza
--- NOTE | 2018-04-11 01:23 | P.HP ---
History of Present Illness Service: [facility] Primary Care Physician: UNKNOWN History of Present Illness: 72-year-old male with a past medical history significant for hypertension, coronary artery disease and thoracic aortic dissection status post repair at [facility] 10 days ago presents to the emergency department for evaluation of chest pain. The patient reports the pain is in his lower chest, centrally located and that it radiates to his abdomen. He also complains of abdominal pain. Reports accompanying shortness of breath and chills without fever. The patient is an extremely poor historian. He has had multiple ED visits for chest pain however no angiogram was done secondary to a contrast allergy. He denies any nausea/vomiting. No focal neurologic deficits. 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 - Medical History Medical History: Medical History (Last Reviewed 04/11/18 @ 01:17 by Luna Marsh MD) Hypertension (Chronic) Abdominal aneurysm Thoracic aortic aneurysm - Surgical History Surgical History: Surgical History (Last Reviewed 04/11/18 @ 01:17 by Luna Marsh MD) H/O heart artery stent (Acute) History of thoracic aortic aneurysm repair S/P hernia surgery - Family History Family History: Family History (Last Reviewed 04/11/18 @ 01:17 by Luna Marsh MD) Father Family history of cancer Hypertension Mother Hypertension - Social History I have reviewed the patient's Social History: Yes - Tobacco History Second Hand Smoke Exposure: No Tobacco Use In Past 30 Days: No Smoking Status: Former smoker Tobacco Type: Cigarettes - Alcohol History How Often Do You Have a Drink Containing Alcohol: Monthly or less - Substance Use History Substance History: No History of Abuse - Travel History Recent Travel in the [place] Within the Last 8 Weeks: No Recent Travel Out of the Country Within the Last 8 Weeks: No - Immunization History Tetanus Immunization: <5 Years Medications and Allergies Active Medications: Active Medications Acetaminophen (Tylenol) 650 mg PO Q4H PRN PRN Reason: Temp > 100.4 Al Hydroxide/Mg Hydroxide (Milk Of Magnesia Liq) 30 ml PO Q12H PRN PRN Reason: Mild Constipation Amlodipine Besylate (Norvasc) 10 mg PO DAILY JUAN ALBERTO Bisacodyl (Dulcolax Supp) 10 mg RECTAL DAILY PRN PRN Reason: SEVERE CONSITIPATION Diphenhydramine HCl (Benadryl Inj) 50 mg IV.PUSH ONCE ONE Stop: 04/11/18 13:01 Labetalol HCl (Trandate) 300 mg PO BID [facility] Lactulose (Lactulose Liq) 30 ml PO DAILY PRN PRN Reason: SEVERE CONSITIPATION Morphine Sulfate (Morphine Inj) 2 mg IV.PUSH Q3H PRN PRN Reason: pain 6-10 Ondansetron HCl (Zofran Inj) 4 mg IV.PUSH Q6H PRN PRN Reason: NAUSEA OR VOMITING Prednisone (Deltasone) 50 mg PO ONCE ONE Stop: 04/11/18 13:01 Prednisone (Deltasone) 50 mg PO ONCE ONE Stop: 04/11/18 14:01 Senna/Docusate Sodium (Brenna-Colace) 1 tab PO BID [facility] Sennosides (Senokot) 17.2 mg PO Q12H PRN PRN Reason: Moderate Constipation Sodium Chloride (Ns Flush) 2 ml IV.FLUSH UNSCH PRN PRN Reason: FLUSH AFTER USING IV ACCESS Sodium Chloride (Ns Flush) 2 ml IV.FLUSH BID JUAN ALBERTO Sodium Chloride (Ns Flush) 2 ml IV.FLUSH PRN PRN PRN Reason: FLUSH AFTER USING IV ACCESS Allergies Allergy/AdvReac Type Severity Reaction Status Date / Time Iodinated Contrast- Oral and Allergy Anaphylaxis, Verified 04/10/18 22:45 IV Dye Desquamation. [Contrast] Penicillins Allergy Hives Verified 04/10/18 22:45 Home Medications Medication Instructions Recorded Confirmed Type lisinopril 40 mg PO DAILY 10/27/17 04/10/18 History aspirin 81 mg PO DAILY 03/24/18 04/10/18 History labetalol 300 mg PO BID 04/01/18 04/10/18 History Exam Vital signs: Vital Signs 04/10/18 22:46 04/10/18 23:59 04/11/18 00:19 Temperature 97.7 F Pulse Rate 99 H Respiratory Rate 20 Blood Pressure 157/86 H Pulse Oximetry 98 98 98 Intake & Output 04/10/18 04/10/18 04/11/18 06:59 18:59 06:59 Weight 72.121 kg Narrative: Gen.: No acute distress Head: Normocephalic. Atraumatic. EENT: Pupils equal round and reactive to light. Nose without drainage. Airway intact. Throat without injection. Cardiovascular: Regular rate and rhythm. No murmurs, rubs or gallops. Chest: Ecchymoses on anterior chest with healing incision left neck. Respiratory: Lungs clear to auscultation bilaterally. No wheezes or rhonchi. Abdomen: Soft, nontender, nondistended. No peritoneal signs. Musculoskeletal: No gross deformities. No edema. Skin: No obvious rashes or erythema. Neuro: Sensory and motor grossly intact. Cranial nerves II through XII grossly intact. Results - Labs CBC & Chem 7: 04/10/18 23:21 04/10/18 23:21 Labs: Laboratory Results - last 24 hr 04/10/18 04/10/18 04/10/18 23:21 23:21 23:21 WBC 11.6 H RBC 4.02 L Hgb 11.8 L Hct 35.7 L MCV 88.8 MCH 29.3 MCHC 33.0 RDW 15.2 Plt Count 159 MPV 7.9 Neut % (Auto) 79.9 H Lymph % (Auto) 11.3 [place] % (Auto) 7.7 Eos % (Auto) 0.1 Baso % (Auto) 1.0 Neut # (Auto) 9.2 H Lymph # (Auto) 1.3 [place] # (Auto) 0.9 Eos # (Auto) 0.0 Baso # (Auto) 0.1 WBC Differential . Differential Comment Auto diff final Sodium 141 Potassium 4.5 Chloride 107 Carbon Dioxide 24.5 Anion Gap 10 BUN 27 H Creatinine 1.72 H Estimated GFR 47 L Random Glucose 115 H Calcium 8.5 Total Bilirubin 2.5 H AST 26 ALT 20 Alkaline Phosphatase 72 Troponin I Less than 0.02 L Total Protein 9.1 H Albumin 3.2 L Lipase 144 Urine Color Yellow Urine Clarity Clear Urine pH 6.0 Ur Specific [place] 1.013 Urine Protein 30 H Urine Glucose (UA) Negative Urine Ketones 20 Urine Occult Blood Small H Urine Nitrate Negative Urine Bilirubin Negative Urine Urobilinogen 0.2 Ur Leukocyte Esterase Small H Urine RBC 5 H Urine WBC 17 H Ur Squamous Epith Cells <1 Urine Bacteria Rare H Hyaline Casts 3 Micro UA Comment Cath-culture ind Ur Microscopic Review Not Reportable Urine Culture Comments Cath-cult indicated - Imaging Impressions Chest X-Ray 04/10/18 23:09 CONCLUSION: 1. No significant interval change. 2. Status post thoracic endograft placement with stable radiographic appearance of tortuous thoracic aortic aneurysm. Abdomen/Pelvis CT 04/11/18 00:08 CONCLUSION: 1. No definitive acute CT abnormality in the abdomen or pelvis. 2. Partially imaged thoracic aortic endograft terminating near the aortic hiatus and fusiform thoracic aortic aneurysm measuring up to 6.1 cm. This is grossly stable in size from recent prior exam. 3. 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 4. Status post right hemicolectomy. Colonic diverticulosis without definitive evidence for diverticulitis. 5. Additional ancillary findings, as above. Caprini VTE Risk Assessment Caprini VTE Risk Assessment: Moderate/High Risk (score >= 2) VTE Pharmacological Exception Reason: High risk for bleeding Caprini Risk Assessment Model: Point Value = 1 Point Value = 2 Point Value = 3 Point Value = 5 Age 41-60 Minor surgery BMI > 25 kg/m2 Swollen legs Varicose veins or History of unexplained or recurrent spontaneous Oral contraceptives or hormone replacement Sepsis (< 1 month) Serious lung disease, including pneumonia (< 1 month) Abnormal pulmonary function Acute myocardial infarction Congestive heart failure (< 1 month) History of inflammatory bowel disease Medical patient at bed rest Age 61-74 Arthroscopic surgery Major open surgery (> 45 min) Laparoscopic surgery (> 45 min) Malignancy Confined to bed (> 72 hours) Immobilizing plaster cast Central venous access Age >= 75 History of VTE Family history of VTE Factor V Leiden Prothrombin [id number] Lupus anticoagulant Anticardiolipin antibodies Elevated serum homocysteine Heparin-induced thrombocytopenia Other congenital or acquired thrombophilia Stroke (< 1 month) Elective arthroplasty Hip, pelvis, or leg fracture Acute spinal cord injury (< 1 month) Prophylaxis Regimen: Total Risk Factor Score Risk Level Prophylaxis Regimen 0-1 Low Early ambulation 2 Moderate Order ONE of the following: *Sequential Compression Device (SCD) *Heparin 5000 units SQ BID 3-4 Higher Order ONE of the following medications: *Heparin 5000 units SQ TID *Enoxaparin/Lovenox 40 mg SQ daily (WT < 150 kg, CrCl > 30 mL/min) *Enoxaparin/Lovenox 30 mg SQ daily (WT < 150 kg, CrCl > 10-29 mL/min) *Enoxaparin/Lovenox 30 mg SQ BID (WT < 150 kg, CrCl > 30 mL/min) AND/OR *Sequential Compression Device (SCD) 5 or more Highest Order ONE of the following medications: *Heparin 5000 units SQ TID (Preferred with Epidurals) *Enoxaparin/Lovenox 40 mg SQ daily (WT < 150 kg, CrCl > 30 mL/min) *Enoxaparin/Lovenox 30 mg SQ daily (WT < 150 kg, CrCl > 10-29 mL/min) *Enoxaparin/Lovenox 30 mg SQ BID (WT < 150 kg, CrCl > 30 mL/min) AND *Sequential Compression Device (SCD) Assessment and Plan - Plan Assessment/plan: 1. Chest pain Patient status post repair of thoracic aortic dissection at [facility] 10 days ago Concern for leak Vascular surgery consulted, appreciate assistance CTA thoracic aorta ordered, to be done after patient is premedicated secondary to his contrast allergy Serial troponins 2. Abdominal pain CT of the abdomen/pelvis without acute process May be secondary to above Monitor 3. Hypertension Continue home amlodipine, labetalol 4. Chronic kidney disease Creatinine 1.72, baseline Monitor renal function FEN N.p.o. Electrolytes: Monitor and replete as needed Holding pharmacologic anticoagulation until cleared by vascular surgery
[2018-04-11] MEDS: Morphine Inj 4 MG/ML Vial IV.PUSH PRN ×3 (04:42→22:06)
[2018-04-11 06:40] LABS: Creatine Kinase 49 U/L (39-308)
[2018-04-11] MEDS: amLODIPine 10 MG Tablet PO SCH (09:50)
[2018-04-11] MEDS: Senna/Docusate Sodium 8.6/50 MG Tablet PO SCH ×2 (09:50→22:05)
--- NOTE | 2018-04-11 10:26 | P.CONVS ---
History of Present Illness Service: Vascular Surgery Consult date: 04/11/18 Reason for Consult: TAAA with pain Primary Care Provider: UNKNOWN Chief Complaint: chest pain and bladder pain History of Present Illness: 72 yo male with a history of a TAA repaired with a C-SC/TEVAR elsewhere years ago. He presented in mid Dec and had chest and back pain and a CTA showed limited endovascular options by my assessment and continued aneurysmal degeneration of his TAAA in the setting of a chronic dissection without malperfusion. He was transferred to [facility] in [facility] and underwent proximal and distal TEVAR extension and L SCA embolization. He was discharged on POD#2 without any sequelae. He has since had recurrent abdominal and back pain. Of note, he has a contrast allergy and is getting a steroid prep for a CTA C/A/ P. No distress in the ED this morning and when I asked him why he is here, he mentions inability to urinate, relieved with Marin insertion and now some lower abdominal discomfort. Only on direct questioning did he complain of both chest and back pain. Review of Systems Constitutional: Denies chills, Denies fever(s) Cardiovascular: Reports chest pain Respiratory: Denies shortness of breath Gastrointestinal: Reports abdominal pain Genitourinary: Reports difficulty urinating PMFSH - History History Provided By: Patient - Medical History Medical History: Medical History (Last Reviewed 04/11/18 @ 10:21 by Daryl Cabral MD) Hypertension (Chronic) Abdominal aneurysm Thoracic aortic aneurysm - Surgical History Surgical History: Surgical History (Last Reviewed 04/11/18 @ 10:21 by Daryl Cabral MD) H/O heart artery stent (Acute) History of thoracic aortic aneurysm repair S/P hernia surgery - Family History Family History: Family History (Last Reviewed 04/11/18 @ 01:17 by Luna Marsh MD) Father Family history of cancer Hypertension Mother Hypertension - Tobacco History Second Hand Smoke Exposure: No Tobacco Use In Past 30 Days: No Smoking Status: Former smoker Tobacco Type: Cigarettes - Alcohol History How Often Do You Have a Drink Containing Alcohol: 2 to 4 times a month - Substance Use History Substance History: Past History - Substance Use Type Crack/Cocaine Status: Sustained Remission - Travel History Recent Travel in the [place] Within the Last 8 Weeks: No Recent Travel Out of the Country Within the Last 8 Weeks: No - Immunization History Tetanus Immunization: <5 Years Medications and Allergies Active Medications: Active Medications Acetaminophen (Tylenol) 650 mg PO Q4H PRN PRN Reason: Temp > 100.4 Al Hydroxide/Mg Hydroxide (Milk Of Magnesia Liq) 30 ml PO Q12H PRN PRN Reason: Mild Constipation Amlodipine Besylate (Norvasc) 10 mg PO DAILY [facility] Last Admin: 04/11/18 09:50 Dose: 10 mg Bisacodyl (Dulcolax Supp) 10 mg RECTAL DAILY PRN PRN Reason: SEVERE CONSITIPATION Diphenhydramine HCl (Benadryl Inj) 50 mg IV.PUSH ONCE ONE Stop: 04/11/18 13:01 Labetalol HCl (Trandate) 300 mg PO BID [facility] Last Admin: 04/11/18 09:50 Dose: 300 mg Lactulose (Lactulose Liq) 30 ml PO DAILY PRN PRN Reason: SEVERE CONSITIPATION Morphine Sulfate (Morphine Inj) 2 mg IV.PUSH Q3H PRN PRN Reason: pain 6-10 Last Admin: 04/11/18 04:42 Dose: 2 mg Ondansetron HCl (Zofran Inj) 4 mg IV.PUSH Q6H PRN PRN Reason: NAUSEA OR VOMITING Prednisone (Deltasone) 50 mg PO ONCE ONE Stop: 04/11/18 13:01 Prednisone (Deltasone) 50 mg PO ONCE ONE Stop: 04/11/18 14:01 Senna/Docusate Sodium (Brenna-Colace) 1 tab PO BID [facility] Last Admin: 04/11/18 09:50 Dose: Not Given Sennosides (Senokot) 17.2 mg PO Q12H PRN PRN Reason: Moderate Constipation Sodium Chloride (Ns Flush) 2 ml IV.FLUSH UNSCH PRN PRN Reason: FLUSH AFTER USING IV ACCESS Sodium Chloride (Ns Flush) 2 ml IV.FLUSH BID [facility] Last Admin: 04/11/18 09:50 Dose: 2 ml Sodium Chloride (Ns Flush) 2 ml IV.FLUSH PRN PRN PRN Reason: FLUSH AFTER USING IV ACCESS Allergies Allergy/AdvReac Type Severity Reaction Status Date / Time Iodinated Contrast- Oral and Allergy Anaphylaxis, Verified 04/10/18 22:45 IV Dye Desquamation. [Contrast] Penicillins Allergy Hives Verified 04/10/18 22:45 Home Medications Medication Instructions Recorded Confirmed Type lisinopril 40 mg PO DAILY 10/27/17 04/10/18 History aspirin 81 mg PO DAILY 03/24/18 04/10/18 History labetalol 300 mg PO BID 04/01/18 04/10/18 History Physical Exam Vital Signs / I&O: Vital Signs 04/10/18 22:46 04/10/18 23:59 04/11/18 00:19 Temperature 97.7 F Pulse Rate 99 H Respiratory Rate 20 Blood Pressure 157/86 H Pulse Oximetry 98 98 98 04/11/18 04:00 04/11/18 07:25 Temperature 97.9 F 96.2 F L Pulse Rate 83 76 Respiratory Rate 18 16 Blood Pressure 116/72 133/80 Pulse Oximetry 96 96 Intake & Output 04/10/18 04/11/18 04/11/18 18:59 06:59 18:59 Intake Total 0 / 0 Output Total 175 / 175 Balance -175 / -175 Weight 72.121 kg Intake: Oral 0 / 0 Output: Urine 0 / 0 Urine Amount (Catheter) 175 / 175 Indwelling Urethral Catheter 175 / 175 Other: Date of Last Bowel Movement 04/08/18 Weight On Admission 54934 kg Neuro: alert, MCWILLIAMS HEENT: NC/AT Neck: no JVD; L neck incision healing nicely, slightly full, no TTP Heart: reg rate Lungs: clear B Abdomen: soft, NT Vascular: palpable UE pulses bilaterally Extremities: MCWILLIAMS, 5/5 strength Laboratory Results - last 24 hr 04/10/18 04/10/18 04/10/18 23:21 23:21 23:21 WBC 11.6 H RBC 4.02 L Hgb 11.8 L Hct 35.7 L MCV 88.8 MCH 29.3 MCHC 33.0 RDW 15.2 Plt Count 159 MPV 7.9 Neut % (Auto) 79.9 H Lymph % (Auto) 11.3 [place] % (Auto) 7.7 Eos % (Auto) 0.1 Baso % (Auto) 1.0 Neut # (Auto) 9.2 H Lymph # (Auto) 1.3 [place] # (Auto) 0.9 Eos # (Auto) 0.0 Baso # (Auto) 0.1 WBC Differential . Differential Comment Auto diff final Sodium 141 Potassium 4.5 Chloride 107 Carbon Dioxide 24.5 Anion Gap 10 BUN 27 H Creatinine 1.72 H Estimated GFR 47 L Random Glucose 115 H Calcium 8.5 Total Bilirubin 2.5 H AST 26 ALT 20 Alkaline Phosphatase 72 Total Creatine Kinase Troponin I Less than 0.02 L Total Protein 9.1 H Albumin 3.2 L Lipase 144 Urine Color Yellow Urine Clarity Clear Urine pH 6.0 Ur Specific [place] 1.013 Urine Protein 30 H Urine Glucose (UA) Negative Urine Ketones 20 Urine Occult Blood Small H Urine Nitrate Negative Urine Bilirubin Negative Urine Urobilinogen 0.2 Ur Leukocyte Esterase Small H Urine RBC 5 H Urine WBC 17 H Ur Squamous Epith Cells <1 Urine Bacteria Rare H Hyaline Casts 3 Micro UA Comment Cath-culture ind Ur Microscopic Review Not Reportable Urine Culture Comments Cath-cult indicated 04/11/18 05:53 WBC RBC Hgb Hct MCV MCH MCHC RDW Plt Count MPV Neut % (Auto) Lymph % (Auto) [place] % (Auto) Eos % (Auto) Baso % (Auto) Neut # (Auto) Lymph # (Auto) [place] # (Auto) Eos # (Auto) Baso # (Auto) WBC Differential Differential Comment Sodium Potassium Chloride Carbon Dioxide Anion Gap BUN Creatinine Estimated GFR Random Glucose Calcium Total Bilirubin AST ALT Alkaline Phosphatase Total Creatine Kinase 49 Troponin I Less than 0.02 L Total Protein Albumin Lipase Urine Color Urine Clarity Urine pH Ur Specific [place] Urine Protein Urine Glucose (UA) Urine Ketones Urine Occult Blood Urine Nitrate Urine Bilirubin Urine Urobilinogen Ur Leukocyte Esterase Urine RBC Urine WBC Ur Squamous Epith Cells Urine Bacteria Hyaline Casts Micro UA Comment Ur Microscopic Review Urine Culture Comments Impressions Chest X-Ray 04/10/18 23:09 CONCLUSION: 1. No significant interval change. 2. Status post thoracic endograft placement with stable radiographic appearance of tortuous thoracic aortic aneurysm. Abdomen/Pelvis CT 04/11/18 00:08 CONCLUSION: 1. No definitive acute CT abnormality in the abdomen or pelvis. 2. Partially imaged thoracic aortic endograft terminating near the aortic hiatus and fusiform thoracic aortic aneurysm measuring up to 6.1 cm. This is grossly stable in size from recent prior exam. 3. 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 4. Status post right hemicolectomy. Colonic diverticulosis without definitive evidence for diverticulitis. 5. Additional ancillary findings, as above. Assessment and Plan - Assessment (1) History of aortic aneurysm repair Code(s): Z98.890 - Other specified postprocedural states; Z86.79 - Personal history of other diseases of the circulatory system Status: Acute - Plan 72 yo male with aortic dissection and now s/p TEVAR with revision recently at . Final angio showed no leaks. Has recurrent CP but clinically looks good. 1. Agree with CTA C/A/P 2. continue ASA, statin, bp control (goal SBP 140s) 3. Will follow and update after CTA done Daryl Cabral MD FACS FSV[employer] electrical assembly supervisor [facility] - Heart and Vascular Surgery at [facility] [phone]
[2018-04-11 12:15] LABS: Creatine Kinase 55 U/L (39-308)
[2018-04-11] MEDS: Sod Chloride 0.9% Inj 1,000 ML IV.CONT SCH (13:16)
--- NOTE | 2018-04-11 14:06 | ECG ---
Date Performed: 04/11/2018 Time Performed: 05:25:23 PTAGE: 72 years EKG: Sinus rhythm MARKED LEFT AXIS DEVIATION POSSIBLE RIGHT VENTRICULAR CONDUCTION DELAY MINIMAL VOLTAGE CRITERIA FOR LVH, CONSIDER NORMAL VARIANT NONSPECIFIC T-WAVE ABNORMALITY ABNORMAL ECG Compared to PREVIOUS TRACING , PVCs are no longer present. PREVIOUS TRACING DOCTOR: Anthony Barahona Interpretating Date/Time 04/11/2018 14:05:05
--- NOTE | 2018-04-11 14:06 | ECG ---
Date Performed: 04/10/2018 Time Performed: 22:51:21 PTAGE: 72 years EKG: Sinus rhythm WITH FREQUENT VENTRICULAR PREMATURE COMPLEXES POSSIBLE LEFT ATRIAL ENLARGEMENT MARKED LEFT AXIS SERA ATION POSSIBLE RIGHT VENTRICULAR CONDUCTION DELAY POSSIBLE LEFT VENTRICULAR HYPERTROPHY NONSPECIFIC S T & T-WAVE ABNORMALITY ABNORMAL ECG Compared to PREVIOUS TRACING , PVCs are more frequent. PREVIOUS TRACIN04/09/2018 07.39 DOCTOR: Anthony Barahona Interpretating Date/Time 04/11/2018 14:04:37
[2018-04-11] MEDS: levoFLOXacin 500 MG Tablet PO SCH (15:30)
--- NOTE | 2018-04-11 16:05 | P.PNADD ---
Addendum to Inpatient Note Reason for Addendum: Additional Documentation Additional information: Labs reviewed patient going for CTA of abdomen.pelvis- will start on IVF 100 cc/hr with underlying CKD- mildly elevated creatinine- patient will be receiving IV contrast ff BMP in am Vascular surgery ff UTI- start on po Levaquin ff final c and s
--- NOTE | 2018-04-11 17:08 | CT ---
EXAM DATE: 04/11/2018 3:05 PM EST AGE/SEX: 72 years / Male INDICATIONS: Evaluate aortic aneurysm. CLINICAL DATA: This is the patient's initial encounter. Patient reports that signs and symptoms have been present for 1 day and indicates a pain score of 2/10. MEDICAL/SURGICAL HISTORY: Cardiovascular disease. Hypertension. Abdominal aortic aneurysm repair. Coronary stent. RADIATION DOSE: 4.74 CTDI (mGy) COMPARISON: [facility] [place] ABDOMEN & PELVIS W/O CONTRAST, 04/11/2018. [facility] [place], CTA THOR ABD AORTA W CONTRA ST W 3D, 03/25/2018. . TECHNIQUE: Volumetric scanning was performed using a multi-row detector CT scanner during bolus infu pete of 73 ml Omnipaque 350 (iohexol) nonionic water-soluble contrast as a single exam dose. The da ta was post processed with a variety of visualization algorithms including full volume maximum intens ity projection, multi-planar sliding thin slab reformation, curved planar reformation, and surface re ndering techniques. Using automated exposure control and adjustment of the mA and/or kV according to patient size, radiation dose was kept as low as reasonably achievable to obtain optimal diagnostic q uality images. DICOM format image data is available electronically for review and comparison. FINDINGS: Angiographic Findings: Thoracic Aorta: Redemonstration of thoracic aortic aneurysm endograft repair with interval proximal a nd distal extension of the endograft and left subclavian origin embolization. Endograft appears intac t and is widely patent. Previously noted proximal endoleak has improved but persists in the proximal arch from the proximal original endograft despite interval extension and subclavian artery embolizati on. There is no evidence for endoleak elsewhere in the descending aorta. The aneurysm sac in the thor acic aorta measures 6.2 cm slightly improved from 6.3 cm in prior exam. Aneurysm sac and the descendi ng thoracic aorta measures 5.3 cm and is significantly improved from recent prior exam measuring 6.5 cm. No periaortic stranding or evidence for rupture. Abdominal Aorta: Persistent suprarenal aortic dissection and aneurysm measuring up to 4.5 x 4.5 cm c ompared to 4.5 x 4.7 cm on prior exam. Redemonstration of chronic dissection extending from the aorti c hiatus to just below the level of the renal arteries. False lumen supplies nonstandard celiac anato my with separate origin of the splenic artery. False lumen also supplies the left renal artery. There is an accessory left renal artery supplied by the aorta below the level of the dissection. Iliacs: Iliac arteries are patent and mildly aneurysmal measuring 1.3 cm on the right and 1.2 cm on t he left. External iliac and hypogastric arteries patent bilaterally. Visualized femoral arteries are patent bilaterally. Renal Arteries: The renal arteries are patent. 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 Celiac is patent. SMA is patent. ASHLEY is patent.: General Findings: LUNGS: Mild compressive atelectasis in the lung bases. Otherwise, lungs are clear. PLEURA: No effusion, significant pleural thickening or pneumothorax. MEDIASTINUM: Heart is unremarkable without pericardial effusion.No evidence of mediastinal or hilar adenopathy. LIVER: The liver has a homogeneous density without space-occupying lesion. There is no dilation of t he biliary tree. SPLEEN: Homogeneous density without enlargement. PANCREAS: Unremarkable without mass or calcification. KIDNEYS: Redemonstration of renal cortical scarring in the superior pole the left kidney. Bilateral renal cystic lesions unchanged from recent prior exam. No radiopaque renal calculi or hydronephrosis. ADRENAL GLANDS: Unremarkable. BOWEL/MESENTERY: Bowel loops are stable in appearance without evidence for bowel obstruction. Scatte red colonic diverticula without significant inflammatory change to suggest diverticulitis. No signifi cant free fluid or drainable fluid collection. No free air or pneumatosis. ABDOMINAL WALL: Small fat-containing anterior abdominal wall hernias. RETROPERITONEUM: No evidence of adenopathy in the retrocrural, para-aortic, or deep pelvic regions. BLADDER: Decompressed secondary to Marin catheter with small amount of air in the lumen. REPRODUCTIVE: No abnormal masses or calcifications seen. BONY STRUCTURES: No lytic or blastic bony lesions. CONCLUSION: 1. Postsurgical features of thoracic aortic aneurysm endograft repair with interval proximal and dis scooby extension of the endograft and left subclavian origin embolization. Endograft appears intact and is widely patent. There is a persistent although smaller endoleak in the proximal thoracic arch in th e region of the proximal original endograft. The proximal aneurysm sac is stable measuring 6.2 cm in comparison to 6.3 cm in prior exam. Distally, aneurysm sac is significantly improved following distal extension to 5.3 cm in comparison to 6.5 cm on prior exam. No evidence for leak or rupture. 2. 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 False lumen supplies nonstandard celiac anatomy and main left renal artery. No evidence for rupture or leak. 3. Additional stable ancillary findings, as above. Electronically signed by: Dilan Orantes MD Board Certified Radiologist 04/11/2018 5:06 PM FAISAL T
[2018-04-12] MEDS: Morphine Inj 4 MG/ML Vial IV.PUSH PRN (01:23)
[2018-04-12 05:48] LABS: Baso % (Auto) 0.1 % (0.0-2.0); Hematocrit 28.3 % (39.0-51.0); Hemoglobin 9.6 gm/dL (13.0-17.0); Lymph # (Auto) 0.4 th/mm3 (1.0-4.8); Lymph % (Auto) 3.4 % (9.0-44.0); Mean Corpuscular HGB Conc 33.9 % (32.0-36.0); Mean Corpuscular Hemoglobin 29.9 pg (27.0-34.0); Mean Corpuscular Volume 88.2 fL (80.0-100.0); Mono # (Auto) 0.6 th/mm3 (0.0-0.9); Neut # (Auto) 11.3 th/mm3 (1.8-7.7); Neut % (Auto) 91.5 % (16.0-70.0); Platelet Count 179 th/mm3 (150-450); Red Blood Count 3.21 mil/mm3 (4.50-5.90); Red Cell Distribution Width 15.4 % (11.6-17.2); White Blood Count 12.3 th/mm3 (4.0-11.0)
[2018-04-12 06:06] LABS: Calcium 8.3 mg/dL (8.5-10.1); Potassium 3.3 meq/L (3.5-5.1)
[2018-04-12] MEDS: Sod Chloride 0.9% Inj 1,000 ML IV.CONT SCH ×3 (06:30→19:12)
[2018-04-12] MEDS: amLODIPine 10 MG Tablet PO SCH (10:01)
[2018-04-12] MEDS: levoFLOXacin 500 MG Tablet PO SCH (10:01)
[2018-04-12] MEDS: Senna/Docusate Sodium 8.6/50 MG Tablet PO SCH ×2 (10:01→21:05)
[2018-04-12] MEDS ORDERED: Morphine Inj 4 MG/ML Vial IV.PUSH PRN (13:43)
--- NOTE | 2018-04-12 14:37 | P.PN ---
Subjective Interval history: awake and alert, no complain no balbir discomfort or shortness of breath Physical Exam Vital signs: Vital Signs 04/11/18 16:00 04/11/18 20:00 04/12/18 01:30 Temperature 97.8 F 97.6 F Pulse Rate 76 77 82 Respiratory Rate 16 16 20 Blood Pressure 106/64 103/64 107/68 Pulse Oximetry 94 L 93 L 95 04/12/18 01:31 04/12/18 04:00 04/12/18 08:00 Temperature 97.6 F 97.6 F Pulse Rate 79 70 Respiratory Rate 17 16 Blood Pressure 114/74 110/74 Pulse Oximetry 95 94 L 98 04/12/18 12:00 04/12/18 12:01 Temperature 97.3 F L Pulse Rate 79 Respiratory Rate 16 Blood Pressure 75/54 L 114/60 Pulse Oximetry 97 Intake & Output 04/11/18 04/12/18 04/12/18 18:59 06:59 18:59 Intake Total 920 / 920 1000 / 1000 Output Total 200 / 200 Balance -200 / -200 920 / 920 1000 / 1000 Intake: IV 920 / 920 1000 / 1000 NS Inj 1,000 ML @ 100 mls/hr IV 920 / 920 1000 / 1000 .CONT .Q10H [facility] Rx#:[id number] Output: Stool 200 / 200 Other: Date of Last Bowel Movement 04/08/18 04/09/18 04/09/18 Narrative: Gen.: No acute distress Head: Normocephalic. Atraumatic. Cardiovascular: Regular rate and rhythm. No murmurs, rubs or gallops. Chest: Ecchymoses on anterior chest with healing incision left neck., some dried blood on gauze dressing, dry Respiratory: Lungs clear to auscultation bilaterally. No wheezes or rhonchi. Abdomen: Soft, nontender, Musculoskeletal: No gross deformities. No edema. Skin: No obvious rashes or erythema. Neuro: Sensory and motor grossly intact. Cranial nerves II through XII grossly intact. - Urinary Catheter Management Indwelling Urethral Catheter Cath placed during this visit: no Reason for continuing: Acute urinary retention Results - Labs CBC & Chem 7: 04/13/18 06:05 04/13/18 06:05 Laboratory Results - last 24 hr 04/12/18 04/12/18 04:59 04:59 WBC 12.3 H RBC 3.21 L Hgb 9.6 L D Hct 28.3 L MCV 88.2 MCH 29.9 MCHC 33.9 RDW 15.4 Plt Count 179 MPV 8.0 Neut % (Auto) 91.5 H Lymph % (Auto) 3.4 L [place] % (Auto) 5.0 Eos % (Auto) 0.0 Baso % (Auto) 0.1 Neut # (Auto) 11.3 H Lymph # (Auto) 0.4 L Hunt # (Auto) 0.6 Eos # (Auto) 0.0 Baso # (Auto) 0.0 WBC Differential . Differential Comment Auto diff final Sodium 140 Potassium 3.3 L D Chloride 106 Carbon Dioxide 23.0 Anion Gap 11 BUN 47 H Creatinine 1.96 H Estimated GFR 41 L Random Glucose 283 H D Calcium 8.3 L Microbiology 04/10/18 23:21 Catheterized Urine Urine Culture - Preliminary No growth in 24 hours - Imaging Impressions Thoracic Aorta CT 04/11/18 14:00 CONCLUSION: 1. Postsurgical features of thoracic aortic aneurysm endograft repair with interval proximal and distal extension of the endograft and left subclavian origin embolization. Endograft appears intact and is widely patent. There is a persistent although smaller endoleak in the proximal thoracic arch in the region of the proximal original endograft. The proximal aneurysm sac is stable measuring 6.2 cm in comparison to 6.3 cm in prior exam. Distally, aneurysm sac is significantly improved following distal extension to 5.3 cm in comparison to 6.5 cm on prior exam. No evidence for leak or rupture. 2. 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 False lumen supplies nonstandard celiac anatomy and main left renal artery. No evidence for rupture or leak. 3. Additional stable ancillary findings, as above. Assessment and Plan - Plan 72 yers old Chest pain status post repair of thoracic aortic dissection at [facility] 10 days ago at - no leak on CT -Vascular surgery ff Abdominal pain- improved - toelrating po, no N/V - CT of the abdomen/pelvis without acute process -May be secondary to above -Monitor Hypertension - one episode of low BP earlier- asymptomatic - now improved - continue on IVF for MARIO ALBERTO - Continue home amlodipine, labetalol- decrease dose of BB - based on BP readings - ff H and H MARIO ALBERTO on Chronic kidney disease History of urinary retention - continue kothari - continue IVGF- patient received IV contrast 04/11 ff BMP Hypokalemia- give po KCL today ff BMP in am
--- NOTE | 2018-04-12 18:52 | ECG ---
Date Performed: 04/11/2018 Time Performed: 11:54:59 PTAGE: 72 years EKG: Sinus rhythm MARKED LEFT AXIS DEVIATION POSSIBLE RIGHT VENTRICULAR CONDUCTION DELAY VOLTAGE CRITERIA FOR LVH NONS PECIFIC T-WAVE ABNORMALITY ABNORMAL ECG PREVIOUS TRACING : 04/11/2018 05.25 Since the previous tracing, no significant change noted DOCTOR: Dora Finley Interpretating Date/Time 04/12/2018 18:50:18
[2018-04-13] MEDS: Sod Chloride 0.9% Inj 1,000 ML IV.CONT SCH ×2 (02:19→09:43)
[2018-04-13 07:31] LABS: Baso % (Auto) 0.1 % (0.0-2.0); Hematocrit 27.2 % (39.0-51.0); Hemoglobin 9.2 gm/dL (13.0-17.0); Lymph % (Auto) 17.2 % (9.0-44.0); Mean Corpuscular HGB Conc 33.9 % (32.0-36.0); Mean Corpuscular Hemoglobin 29.7 pg (27.0-34.0); Mean Corpuscular Volume 87.6 fL (80.0-100.0); Mean Platelet Volume 7.8 fL (7.0-11.0); Mono # (Auto) 0.8 th/mm3 (0.0-0.9); Mono % (Auto) 7.3 % (0.0-8.0); Neut # (Auto) 8.7 th/mm3 (1.8-7.7); Neut % (Auto) 75.4 % (16.0-70.0); Platelet Count 210 th/mm3 (150-450); Red Cell Distribution Width 15.2 % (11.6-17.2); White Blood Count 11.5 th/mm3 (4.0-11.0)
[2018-04-13 07:33] VITALS: BP 126/74; RESP 17; TEMP 97.3; O2SAT 98
[2018-04-13 07:56] LABS: Calcium 7.5 mg/dL (8.5-10.1); Carbon Dioxide 22.9 meq/L (21.0-32.0); Potassium 3.4 meq/L (3.5-5.1)
[2018-04-13] MEDS: amLODIPine 10 MG Tablet PO SCH (09:42)
[2018-04-13] MEDS: Senna/Docusate Sodium 8.6/50 MG Tablet PO SCH (09:42)
[2018-04-13] MEDS: levoFLOXacin 500 MG Tablet PO SCH (09:42)
--- NOTE | 2018-04-13 09:55 | P.PN ---
Subjective Interval history: no complains of chest pain or shortness of breath up and ambualtinf Physical Exam Vital signs: Vital Signs 04/12/18 12:00 04/12/18 12:01 04/12/18 16:00 Temperature 97.3 F L Pulse Rate 79 78 Respiratory Rate 16 16 Blood Pressure 75/54 L 114/60 112/57 L Pulse Oximetry 97 98 04/12/18 20:00 04/12/18 22:05 04/12/18 23:34 Temperature 98.2 F 98.0 F Pulse Rate 80 82 80 Respiratory Rate 18 18 Blood Pressure 96/59 L 122/70 Pulse Oximetry 97 96 04/13/18 01:55 04/13/18 02:54 04/13/18 04:00 Temperature 98.5 F Pulse Rate 76 81 Respiratory Rate 21 18 Blood Pressure 130/79 Pulse Oximetry 97 04/13/18 07:32 Temperature 97.3 F L Pulse Rate 78 Respiratory Rate 17 Blood Pressure 126/74 Pulse Oximetry 98 Intake & Output 04/12/18 04/13/18 04/13/18 18:59 06:59 18:59 Intake Total 1000 / 1000 1999 / 1999 1000 / 1000 Balance 1000 / 1000 1999 / 1999 1000 / 1000 Intake: IV 1000 / 1000 1999 / 1999 1000 / 1000 NS Inj 1,000 ML @ 100 mls/hr IV 1000 / 1000 1999 / 1999 1000 / 1000 .CONT .Q10H [facility] Rx#:[id number] Other: # Urine Diapers 1 Date of Last Bowel Movement 04/09/18 Narrative: Gen.: No acute distress Head: Normocephalic. Atraumatic. Cardiovascular: Regular rate and rhythm. No murmurs, rubs or gallops. Chest: Ecchymoses on anterior chest with healing incision left neck., dry - infraclavicular area- with inciison site- dry- sutures still in place Respiratory: Lungs clear to auscultation bilaterally. No wheezes or rhonchi. Abdomen: Soft, nontender, Musculoskeletal: No gross deformities. No edema. Skin: No obvious rashes or erythema. Neuro: Sensory and motor grossly intact. Cranial nerves II through XII grossly intact. - Urinary Catheter Management Indwelling Urethral Catheter Cath placed during this visit: no Reason for continuing: Acute urinary retention Results - Labs CBC & Chem 7: 04/13/18 06:05 04/13/18 06:05 Laboratory Results - last 24 hr 04/13/18 04/13/18 04/13/18 06:05 06:05 06:05 WBC 11.5 H RBC 3.10 L Hgb 9.2 L Hct 27.2 L MCV 87.6 MCH 29.7 MCHC 33.9 RDW 15.2 Plt Count 210 MPV 7.8 Neut % (Auto) 75.4 H Lymph % (Auto) 17.2 [place] % (Auto) 7.3 Eos % (Auto) 0.0 Baso % (Auto) 0.1 Neut # (Auto) 8.7 H Lymph # (Auto) 2.0 [place] # (Auto) 0.8 Eos # (Auto) 0.0 Baso # (Auto) 0.0 WBC Differential . Differential Comment Auto diff final Sodium 144 Potassium 3.4 L Chloride 112 H Carbon Dioxide 22.9 Anion Gap 9 BUN 34 H Creatinine 1.59 H Estimated GFR 52 L Random Glucose 123 H D Calcium 7.5 L D Blood Type A Negative Antibody Screen Negative Microbiology 04/10/18 23:21 Catheterized Urine Urine Culture - Final No growth in 48 hours Assessment and Plan - Plan 72 yers old Chest pain status post repair of thoracic aortic dissection at [facility] 10 days ago at [facility] - no leak on CT -Vascular surgery ff Abdominal pain- improved - tolerating po, no N/V - CT of the abdomen/pelvis without acute process -May be secondary to above -Monitor Hypertension - good BP readings- no further hypotension - Continue home amlodipine, labetalol- - ff H and H - d/w him to ff up with PCP- regarding reinitiation of MIKAYLA was on Lisinorpil 40 as OP MARIO ALBERTO on Chronic kidney disease- creatinine improved- near baseline History of urinary retention - good po, encourge po fluid - ff BMP - MIKAYLA held - DC kothari. check voiding Hypokalemia- give po KCL today -give po KCL x 2 days - OP ff up with PCP for repeat BMP UTI- final Cand S- no growth - received 3 days course of Levaquin Dc home today OP ff up with [facility]- regarding sutrue removal
[2018-04-13 12:34] VITALS: PULSE 66
== END 2018-04-13 12:16 | disposition home or self-care (01) ==
LOC: NEPC 22:38 → INTOOBSV 04-11 00:08 → NEDA 04-11 00:08 → NEPFCDU 04-11 02:21
PROVIDERS: ADMIT Internal Medicine; ATTEND Internal Medicine
DX: Z95.5 Presence of coronary angioplasty implant and graft; Z79.82 Long term (current) use of aspirin; Z98.890 Other specified postprocedural states; Z91.041 Radiographic dye allergy status; Z87.891 Personal history of nicotine dependence; M54.9 Dorsalgia, unspecified; Z80.9 Family history of malignant neoplasm, unspecified; R68.83 Chills (without fever); I71.01 Dissection of thoracic aorta; Z79.899 Other long term (current) drug therapy; R06.02 Shortness of breath; I12.9 Hypertensive chronic kidney disease with stage 1 through stage 4 chronic kidney disease, or unspecified chronic kidney disease; N18.9 Chronic kidney disease, unspecified; Z88.0 Allergy status to penicillin; R07.89 Other chest pain; R33.9 Retention of urine, unspecified; R10.12 Left upper quadrant pain
CPT/HCPCS: 51702; 51798; 71010; 71045; 71275; 74175; 74176; 80048; 80053; 81001; 82550; 83690; 84484; 85025; 86850; 86900; 86901; 87086; 90774; 90784; 93005; 96361; 96374; 96375; 96376; 99283; 99285; C8952; G0378; J1200; J2270; J7030; J7506; J7512; Q9967

== ENCOUNTER 2018-04-16 17:02 | Observation (INO) ==
[2018-04-16 21:08] LABS: Baso % (Auto) 0.4 % (0.0-2.0); Eos # (Auto) 0.2 th/mm3 (0.0-0.4); Hematocrit 30.7 % (39.0-51.0); Hemoglobin 10.1 gm/dL (13.0-17.0); Lymph # (Auto) 1.9 th/mm3 (1.0-4.8); Lymph % (Auto) 18.6 % (9.0-44.0); Mean Corpuscular HGB Conc 32.9 % (32.0-36.0); Mean Corpuscular Hemoglobin 29.3 pg (27.0-34.0); Mean Corpuscular Volume 88.8 fL (80.0-100.0); Mean Platelet Volume 7.5 fL (7.0-11.0); Mono % (Auto) 10.3 % (0.0-8.0); Neut # (Auto) 6.9 th/mm3 (1.8-7.7); Neut % (Auto) 68.7 % (16.0-70.0); Platelet Count 254 th/mm3 (150-450); Red Blood Count 3.46 mil/mm3 (4.50-5.90); Red Cell Distribution Width 15.3 % (11.6-17.2)
--- NOTE | 2018-04-16 21:18 | CT ---
EXAM DATE: 04/16/2018 8:48 PM EST AGE/SEX: 73 years / Male INDICATIONS: Patient complains of dizziness and lower extremity weakness. CLINICAL DATA: This is the patient's initial encounter. Patient reports that signs and symptoms have been present for 1 day and indicates a pain score of 0/10. MEDICAL/SURGICAL HISTORY: Hypertension. Cardiovascular disease. None. RADIATION DOSE: 56.35 CTDI (mGy) COMPARISON: No prior exams available for comparison. TECHNIQUE: CT of the head without contrast. Using automated exposure control and adjustment of the mA and/or kV according to patient size, radiation dose was kept as low as reasonably achievable to ob tain optimal diagnostic quality images. DICOM format image data is available electronically for revi ew and comparison. FINDINGS: Cerebrum: The ventricles are normal for age. No evidence of midline shift, mass lesion, hemorrhage or acute infarction. No extraaxial fluid collections are seen. Posterior Fossa: The cerebellum and brainstem are intact. The 4th ventricle is midline. The cerebe llopontine angle is unremarkable. Extracranial: The visualized portion of the orbits is intact. Skull: The calvaria is intact. No evidence of skull fracture. CONCLUSION: 1. No acute intracranial abnormality. . Electronically signed by: Maciej Madrid MD Board Certified Radiologist 04/16/2018 9:17 PM EST
--- NOTE | 2018-04-16 21:18 | CT ---
EXAM DATE: 04/16/2018 8:55 PM EST AGE/SEX: 73 years / Male INDICATIONS: Patient complains of dizziness and lower extremity weakness. CLINICAL DATA: This is the patient's initial encounter. Patient reports that signs and symptoms have been present for 1 day and indicates a pain score of 0/10. MEDICAL/SURGICAL HISTORY: Hypertension. Cardiovascular disease. None. RADIATION DOSE: 19.25 CTDI (mGy) COMPARISON: [facility], CTA THOR ABD AORTA W CONTRAST W 3D, 04/11/2018. . TECHNIQUE: Contiguous axial images were obtained using helical multirow detector technique. The vol umetric data was post-processed with multiplanar reconstruction in oblique axial, sagittal, and coron al planes. Using automated exposure control and adjustment of the mA and/or kV according to patient s ize, radiation dose was kept as low as reasonably achievable to obtain optimal diagnostic quality nabil ges. DICOM format image data is available electronically for review and comparison. FINDINGS: No acute fracture or spondylolisthesis. Moderate degenerative disc disease with slight reversal of no rmal cervical lordosis. Moderate facet arthropathy. No prevertebral soft tissue swelling. No signific ant canal stenosis. CONCLUSION: 1. Moderate degenerative disc disease with slight reversal of normal cervical lordosis. 2. Incidental note made of left subclavian stent. Complex fluid collection in the left supraclavicul ar region. Electronically signed by: Maciej Madrid MD Board Certified Radiologist 04/16/2018 9:16 PM EST
[2018-04-16 21:20] LABS: Activated Partial Thrombo Time 25.4 sec (23.4-31.7); Prothrombin Time 10.2 sec (9.8-11.6)
[2018-04-16 21:27] LABS: Albumin 2.8 g/dL (3.4-5.0); Anion Gap 10 meq/L (5-15); Aspartate Aminotransferase 35 U/L (15-37); Blood Urea Nitrogen 30 mg/dL (7-18); Calcium 8.1 mg/dL (8.5-10.1); Carbon Dioxide 21.9 meq/L (21.0-32.0); Chloride 110 meq/L (98-107); Glomerular Filtration Rate 39 mL/min (>89); Glucose,Random 88 mg/dL (74-106); Sodium 142 meq/L (136-145)
[2018-04-16 21:36] LABS: Alanine Aminotransferase 21 U/L (12-78); Alkaline Phosphatase 72 U/L (45-117); Total Protein 7.6 g/dL (6.4-8.2)
--- NOTE | 2018-04-16 21:36 | XR ---
EXAM DATE: 04/16/2018 9:12 PM EST AGE/SEX: 73 years / Male INDICATIONS: Short of breath, infected catheter. CLINICAL DATA: This is the patient's initial encounter. Patient reports that signs and symptoms have been present for 1 day and indicates a pain score of 0/10. MEDICAL/SURGICAL HISTORY: Chronic obstructive pulmonary disease. Cardiovascular disease. . Car diac stent COMPARISON: [facility], CHEST 1V SINGLE AP, 04/14/2018. . FINDINGS: Previous stent graft repair of thoracic aneurysm, stable in appearance from April 14. No new infil trate or effusion. No pneumothorax. Heart size upper limits normal. CONCLUSION: Stable appearance of thoracic aortic stent graft. No new infiltrate. Electronically signed by: Maciej Madrid MD Board Certified Radiologist 04/16/2018 9:35 PM EST
[2018-04-16 21:42] LABS: Potassium 3.8 meq/L (3.5-5.1)
--- NOTE | 2018-04-16 23:02 | ECG ---
Date Performed: 04/16/2018 Time Performed: 19:29:50 PTAGE: 73 years EKG: Sinus rhythm WITH FREQUENT VENTRICULAR PREMATURE COMPLEXES LEFT AXIS DEVIATION VOLTAGE CRITERIA FOR LVH NONSPECIF IC T-WAVE ABNORMALITY ABNORMAL ECG PREVIOUS TRACING : 04/11/2018 11.54 Compared to previous tracing, PVCs are now present. DOCTOR: Del Ro Interpretating Date/Time 04/16/2018 22:59:56
[2018-04-16] MEDS ORDERED: Bisacodyl 10 MG Supp RECTAL PRN (23:03)
[2018-04-16] MEDS ORDERED: Acetaminophen 325 MG Tablet PO PRN (23:03)
--- NOTE | 2018-04-16 23:07 | P.HPIM ---
History of Present Illness Primary Care Physician: UNKNOWN History of Present Illness: This is a 73-year-old male with a PMH of HTN, Hyperlipidemia, Urinary Retention s/p Marin and h/o TAA Repair w/ revision at [facility] approx 1wk ago who comes into the ER w/ c/o generalized weakness, fall and possible syncopal event. States he was d/c'd home from [facility] and has been having progressive weakness w/ difficulty ambulating, notes few episodes of fall. Pt is poor historian, believes he may have had syncopal event but is unsure. Denies chest pain or SOB. Recently seen in ER on 04/14/18 for urinary retention, found to have UTI and d/c'd on Cipro. On arrival, BP 139/94, HR 72, O2 sat 98% on RA, Afebrile. CBC unremarkable. INR 1.0. Chemistry at baseline. CXR with no acute findings, stable appearance of thoracic aortic stent graft. CT Head no acute findings. CT C-spine no acute findings, left subclavian stent, complex fluid collection in the left supraclavicular region. Diagnosis (1) Syncope: (2) UTI (urinary tract infection): (3) Generalized weakness: Review of Systems PAST FAMILY HISTORY: Reviewed. No h/o DM or CAD Review of Systems: all other systems reviewed are negative [facility] Social History Social History Substance History: No History of Abuse Second Hand Smoke Exposure: No Smoking Status: Former smoker Tobacco Type: Cigarettes How Often Do You Have a Drink Containing Alcohol: 2 to 3 times a week Recent Travel in [facility] within the Last 8 Weeks: No Recent Out of Country Travel within the Last 8 Weeks: No Immunization History Tetanus Immunization: <5 Years Medications and Allergies Allergies Allergy/AdvReac Type Severity Reaction Status Date / Time Iodinated Contrast- Oral and Allergy Anaphylaxis, Verified 04/16/18 19:53 IV Dye Desquamation. [Contrast] Penicillins Allergy Hives Verified 04/16/18 19:53 Home Medications Medication Instructions Recorded Confirmed Type aspirin 81 mg PO DAILY 03/24/18 04/16/18 History labetalol 300 mg PO BID 04/01/18 04/16/18 History Active Medications: Active Medications Acetaminophen (Tylenol) 650 mg PO Q4H PRN PRN Reason: Temp > 100.4 Al Hydroxide/Mg Hydroxide (Milk Of Magnesia Liq) 30 ml PO Q12H PRN PRN Reason: Mild Constipation Bisacodyl (Dulcolax Supp) 10 mg RECTAL DAILY PRN PRN Reason: SEVERE CONSITIPATION Sodium Chloride (Ns Inj) 1,000 mls @ 100 mls/hr IV.CONT .Q10H JUAN ALBERTO Lactulose (Lactulose Liq) 30 ml PO DAILY PRN PRN Reason: SEVERE CONSITIPATION Ondansetron HCl (Zofran Inj) 4 mg IV.PUSH Q6H PRN PRN Reason: NAUSEA OR VOMITING Senna/Docusate Sodium (Brenna-Colace) 1 tab PO BID JUAN ALBERTO Sennosides (Senokot) 17.2 mg PO Q12H PRN PRN Reason: Moderate Constipation Sodium Chloride (Ns Flush) 2 ml IV.FLUSH BID JUAN ALBERTO Sodium Chloride (Ns Flush) 2 ml IV.FLUSH PRN PRN PRN Reason: FLUSH AFTER USING IV ACCESS Physical Exam Vital signs: Last Vital Signs Temp 97.8 F 04/16/18 19:56 Pulse 72 04/16/18 19:56 Resp 20 04/16/18 19:56 BP 179/94 H 04/16/18 19:56 Pulse Ox 98 04/16/18 19:56 Intake & Output 04/14/18 04/15/18 04/16/18 04/17/18 06:59 06:59 06:59 06:59 Weight 72.121 kg Narrative: PE: GENERAL: Pleasant elderly black male in no acute distress. SKIN: Focused skin assessment warm and dry. HEENT: PERRLA, EOMI. No scleral icterus or conjunctival pallor. No lid lag or facial droop. CARDIOVASCULAR: Regular rate and rhythm. No obvious murmurs to auscultation. No chest tenderness to palpation. RESPIRATORY: No obvious rhonchi or wheezing. Clear to auscultation. Breath sounds equal bilaterally. GASTROINTESTINAL: Abdomen soft, non-tender, nondistended. BS normal. MUSCULOSKELETAL: Extremities without clubbing, cyanosis, or edema. No obvious deformities. NEUROLOGICAL: Awake, alert. No focal neurologic deficits. Moving both upper and lower extremities spontaneously. PSYCHIATRIC: Appropriate mood and affect. Insight and judgment normal. Results Labs CBC & Chem 7: 04/16/18 20:35 04/16/18 20:35 Imaging Impressions Cervical Spine CT 04/16/18 20:23 CONCLUSION: 1. Moderate degenerative disc disease with slight reversal of normal cervical lordosis. 2. Incidental note made of left subclavian stent. Complex fluid collection in the left supraclavicular region. Chest X-Ray 04/16/18 20:23 CONCLUSION: Stable appearance of thoracic aortic stent graft. No new infiltrate. Head CT 04/16/18 20:23 CONCLUSION: 1. No acute intracranial abnormality. . Caprini VTE Risk Assessment Caprini VTE Risk Assessment: No/Low Risk (score <= 1) Caprini Risk Assessment Model: Point Value = 1 Point Value = 2 Point Value = 3 Point Value = 5 Age 41-60 Minor surgery BMI > 25 kg/m2 Swollen legs Varicose veins or History of unexplained or recurrent spontaneous Oral contraceptives or hormone replacement Sepsis (< 1 month) Serious lung disease, including pneumonia (< 1 month) Abnormal pulmonary function Acute myocardial infarction Congestive heart failure (< 1 month) History of inflammatory bowel disease Medical patient at bed rest Age 61-74 Arthroscopic surgery Major open surgery (> 45 min) Laparoscopic surgery (> 45 min) Malignancy Confined to bed (> 72 hours) Immobilizing plaster cast Central venous access Age >= 75 History of VTE Family history of VTE Factor V Leiden Prothrombin [id number] Lupus anticoagulant Anticardiolipin antibodies Elevated serum homocysteine Heparin-induced thrombocytopenia Other congenital or acquired thrombophilia Stroke (< 1 month) Elective arthroplasty Hip, pelvis, or leg fracture Acute spinal cord injury (< 1 month) Prophylaxis Regimen: Total Risk Factor Score Risk Level Prophylaxis Regimen 0-1 Low Early ambulation 2 Moderate Order ONE of the following: *Sequential Compression Device (SCD) *Heparin 5000 units SQ BID 3-4 Higher Order ONE of the following medications: *Heparin 5000 units SQ TID *Enoxaparin/Lovenox 40 mg SQ daily (WT < 150 kg, CrCl > 30 mL/min) *Enoxaparin/Lovenox 30 mg SQ daily (WT < 150 kg, CrCl > 10-29 mL/min) *Enoxaparin/Lovenox 30 mg SQ BID (WT < 150 kg, CrCl > 30 mL/min) AND/OR *Sequential Compression Device (SCD) 5 or more Highest Order ONE of the following medications: *Heparin 5000 units SQ TID (Preferred with Epidurals) *Enoxaparin/Lovenox 40 mg SQ daily (WT < 150 kg, CrCl > 30 mL/min) *Enoxaparin/Lovenox 30 mg SQ daily (WT < 150 kg, CrCl > 10-29 mL/min) *Enoxaparin/Lovenox 30 mg SQ BID (WT < 150 kg, CrCl > 30 mL/min) AND *Sequential Compression Device (SCD) Assessment and Plan (1) Syncope: Code(s): R55 - Syncope and collapse Status: Acute (2) UTI (urinary tract infection): Code(s): N39.0 - Urinary tract infection, site not specified Status: Acute (3) Generalized weakness: Code(s): R53.1 - Weakness Status: Acute Plan A/P: 1. Syncope: reports fall today w/ possible syncopal event, CT Head/C-Spine w/ no acute findings, will admit for Observation, telemetry, check Echo to eval for valvular abnormality/cardiomyopathy, IVF for hydration, recent UTI on Cipro , will recheck U/a. 2. Generalized Weakness: w/ recurrent falls, will consult PT for eval/tx, may need Case Management assistance for placement/HHC 3. UTI: U/a/ w/ UTI 04/14/18 d/c'd on Cipro, will recheck U/a for persistent UTI. 4. DVT Prophylaxis: SCD/Teds 5. Social work for d/c planning as needed. 6. Case discussed w/ ER physician at length, labs/records/imaging reviewed by me.
[2018-04-17] MEDS: Sod Chloride 0.9% Inj 1,000 ML IV.CONT SCH ×2 (00:37→11:38)
--- NOTE | 2018-04-17 00:46 | ED ---
HPI General Chief complaint: Weakness Stated complaint: weakness Time Seen by Provider: 04/16/18 20:13 History of Present Illness HPI Narrative: Patient is a 73-year-old male presents the emergency department with chief complaint of weakness and to falls. Patient states he had a stent revised at [facility] last week. He has been home and doing okay. He states that today his legs were so weak that he was unable to stand but he does not actually recall the fall and believes he may have had an episode of syncope. This occurred twice prompting him to call EMS for transport to the ER. Patient has no chest pain or shortness of breath at this time he has no injury from the fall but does take anticoagulation. Related Data Home Medications Medication Instructions Recorded Confirmed aspirin 81 mg PO DAILY 03/24/18 04/16/18 labetalol 300 mg PO BID 04/01/18 04/16/18 Previous Rx's Medication Instructions Recorded amlodipine [Norvasc] 10 mg PO DAILY tab 10/27/17 ciprofloxacin HCl 500 mg PO BID 7 Days #14 tab 04/14/18 tamsulosin [Flomax] 0.4 mg PO DAILY #10 cap 04/14/18 Allergies Allergy/AdvReac Type Severity Reaction Status Date / Time Iodinated Contrast- Oral and Allergy Anaphylaxis, Verified 04/16/18 19:53 IV Dye Desquamation. [Contrast] Penicillins Allergy Hives Verified 04/16/18 19:53 Review of Systems ROS: all other systems reviewed are negative [facility] Social History Social History Substance History: No History of Abuse Second Hand Smoke Exposure: No Smoking Status: Former smoker Tobacco Type: Cigarettes How Often Do You Have a Drink Containing Alcohol: 2 to 3 times a week Recent Travel in [facility] within the Last 8 Weeks: No Recent Out of Country Travel within the Last 8 Weeks: No Immunization History Tetanus Immunization: <5 Years Exam Narrative Exam Narrative: GENERAL: 73-year-old male in minimal distress SKIN: Focused skin assessment warm/dry. HEAD: Atraumatic. Normocephalic. EYES: Pupils equal and round. No scleral icterus. No injection or drainage. NECK: Trachea midline. Normal ROM. CARDIOVASCULAR: Regular rate and rhythm. No murmur appreciated. RESPIRATORY: No accessory muscle use. Clear to auscultation. Breath sounds equal bilaterally. GASTROINTESTINAL: Abdomen soft, non-tender, nondistended. Hepatic and splenic margins not palpable. MUSCULOSKELETAL: No obvious deformities. No clubbing. No cyanosis. No edema. NEUROLOGICAL: Awake and alert. No obvious cranial nerve deficits. Motor grossly within normal limits. Normal speech. Course Initial Documented Vital Signs Temperature 97.8 F 04/16/18 19:56 Pulse Rate 72 04/16/18 19:56 Respiratory Rate 20 04/16/18 19:56 Blood Pressure 179/94 H 04/16/18 19:56 Pulse Oximetry 98 04/16/18 19:56 Last Documented Vital Signs Temperature 97.8 F 04/16/18 23:03 Pulse Rate 86 04/16/18 23:03 Respiratory Rate 14 04/16/18 23:03 Blood Pressure 150/79 H 04/16/18 23:03 Pulse Oximetry 98 04/16/18 23:03 Medical Decision Making MDM Narrative Medical decision making narrative: Patient was seen and evaluated in the emergency department. Studies were unremarkable and did not explain his syncope nor his leg weakness. Given his history of 2 falls and inability to walk I feel would be prudent to add made him for further observation and treatment. I think he would benefit from a physical therapy consult as well. Patient is admitted to [facility]. Medical Screen Exam Complete: Yes Emergency Medical Condition: Yes Lab Data Result diagrams: 04/16/18 20:35 04/16/18 20:35 Lab Results 04/16/18 04/16/18 04/16/18 Range/Units 20:35 20:35 20:35 WBC 10.0 (4.0-11.0) th/mm3 RBC 3.46 L (4.50-5.90) mil/mm3 Hgb 10.1 L (13.0-17.0) gm/dL Hct 30.7 L (39.0-51.0) % MCV 88.8 (80.0-100.0) fL MCH 29.3 (27.0-34.0) pg MCHC 32.9 (32.0-36.0) % RDW 15.3 (11.6-17.2) % Plt Count 254 (150-450) th/mm3 MPV 7.5 (7.0-11.0) fL Neut % (Auto) 68.7 (16.0-70.0) % Lymph % (Auto) 18.6 (9.0-44.0) % [place] % (Auto) 10.3 H (0.0-8.0) % Eos % (Auto) 2.0 (0.0-4.0) % Baso % (Auto) 0.4 (0.0-2.0) % Neut # (Auto) 6.9 (1.8-7.7) th/mm3 Lymph # (Auto) 1.9 (1.0-4.8) th/mm3 [place] # (Auto) 1.0 H (0.0-0.9) th/mm3 Eos # (Auto) 0.2 (0.0-0.4) th/mm3 Baso # (Auto) 0.0 (0.0-0.2) th/mm3 WBC Differential . Differential Comment Auto diff final PT 10.2 (9.8-11.6) sec INR 1.0 Ratio APTT 25.4 (23.4-31.7) sec Sodium 142 (136-145) meq/L Potassium 3.8 (3.5-5.1) meq/L Chloride 110 H (98-107) meq/L Carbon Dioxide 21.9 (21.0-32.0) meq/L Anion Gap 10 (5-15) meq/L BUN 30 H (7-18) mg/dL Creatinine 2.03 H (0.60-1.30) mg/dL Estimated GFR 39 L (>89) mL/min Random Glucose 88 (74-106) mg/dL Calcium 8.1 L (8.5-10.1) mg/dL Total Bilirubin 1.6 H (0.2-1.0) mg/dL AST 35 (15-37) U/L ALT 21 (12-78) U/L Alkaline Phosphatase 72 (45-117) U/L Total Protein 7.6 (6.4-8.2) g/dL Albumin 2.8 L (3.4-5.0) g/dL Imaging Data Radiologist's impression: Cervical Spine CT 04/16/18 20:23 CONCLUSION: 1. Moderate degenerative disc disease with slight reversal of normal cervical lordosis. 2. Incidental note made of left subclavian stent. Complex fluid collection in the left supraclavicular region. Chest X-Ray 04/16/18 20:23 CONCLUSION: Stable appearance of thoracic aortic stent graft. No new infiltrate. Head CT 04/16/18 20:23 CONCLUSION: 1. No acute intracranial abnormality. . Discharge Plan Discharge Disposition Patient Disposition: ED Admit(ED Internal Use Only) Discharge Condition Condition: Stable Discharge Order Discharge Orders: ED Use Only Admit Order (Routine); Ordered 04/16/18 Ordered By: Roxanna Schroeder Discharge Details Diagnosis: Syncope, Weakness Physicians Team ED Provider: Roxanna Schroeder Primary Care Provider: UNKNOWN, Attending Provider: Francoise Crenshaw Other Providers: [facility],Insurance Discharge Interventions Interventions: ED Discharge Assessment Last Done: 04/17/18 00:39 Status ED Status: Admitted Observation Patient
[2018-04-17 03:45] LABS: Bilirubin,Urine Negative (Negative); Clarity,Urine Clear (Clear); Color,Urine Yellow (Yellw/Straw); Glucose,Urine (UA) Negative (Negative); Leukocyte Esterase,Urine Negative (Negative); Mucus,Urine Few /lpf (Occasional); Nitrite,Urine Negative (Negative); Specific Gravity,Urine 1.013 (1.002-1.035)
[2018-04-17 06:58] LABS: Baso % (Auto) 0.2 % (0.0-2.0); Eos # (Auto) 0.2 th/mm3 (0.0-0.4); Hematocrit 29.4 % (39.0-51.0); Hemoglobin 9.9 gm/dL (13.0-17.0); Lymph # (Auto) 1.4 th/mm3 (1.0-4.8); Lymph % (Auto) 16.8 % (9.0-44.0); Mean Corpuscular HGB Conc 33.7 % (32.0-36.0); Mean Corpuscular Hemoglobin 29.5 pg (27.0-34.0); Mean Corpuscular Volume 87.6 fL (80.0-100.0); Mean Platelet Volume 7.5 fL (7.0-11.0); Mono # (Auto) 0.9 th/mm3 (0.0-0.9); Mono % (Auto) 10.9 % (0.0-8.0); Neut % (Auto) 70.1 % (16.0-70.0); Platelet Count 246 th/mm3 (150-450); Red Blood Count 3.36 mil/mm3 (4.50-5.90); Red Cell Distribution Width 15.4 % (11.6-17.2); White Blood Count 8.5 th/mm3 (4.0-11.0)
[2018-04-17 07:20] LABS: Alanine Aminotransferase 20 U/L (12-78); Albumin 2.7 g/dL (3.4-5.0); Anion Gap 8 meq/L (5-15); Aspartate Aminotransferase 21 U/L (15-37); Blood Urea Nitrogen 23 mg/dL (7-18); Calcium 7.9 mg/dL (8.5-10.1); Carbon Dioxide 23.7 meq/L (21.0-32.0); Chloride 110 meq/L (98-107); Glomerular Filtration Rate 52 mL/min (>89); Glucose,Random 103 mg/dL (74-106); Potassium 3.4 meq/L (3.5-5.1); Sodium 142 meq/L (136-145)
[2018-04-17 07:22] LABS: Alkaline Phosphatase 72 U/L (45-117); Total Protein 7.2 g/dL (6.4-8.2)
[2018-04-17] MEDS: Senna/Docusate Sodium 8.6/50 MG Tablet PO SCH ×2 (09:22→22:05)
--- NOTE | 2018-04-17 14:25 | P.PNIM ---
Subjective Interval history: Patient reports that he lives alone and asking for someone to come home to maybe help him clean if possible switch to renal social worker. He was just discharged on Tuesday the and then returned back on the for urinary retention in which a Marin catheter had to be reinserted. He reports that he may had fell at home and felt dizzy at that time. Since he came in he has not had any recurrent dizziness. He denies any chest pains nor any shortness of breath or coughing. He came in with a bag of medications some of them has been discontinued. We discussed that we will sort out his medications prior to discharge and throw away those that has been discontinued. Physical Exam Vital signs: Last Vital Signs Temp 97.4 F L 04/17/18 12:00 Pulse 80 04/17/18 12:00 Resp 16 04/17/18 12:00 BP 121/82 04/17/18 12:00 Pulse Ox 98 04/17/18 12:00 Intake & Output 04/15/18 04/16/18 04/17/18 04/18/18 06:59 06:59 06:59 06:59 Intake Total 1000 / 1000 Output Total 700 / 700 Balance -700 / -700 1000 / 1000 Weight 72.121 kg Narrative: Well-nourished well-developed pleasant male no acute distress laying in bed Cardiovascular regular rate and rhythm no murmurs Lungs relatively clear to auscultation bilaterally Abdomen soft nontender Extremities no cyanosis clubbing or edema Neurological exam alert and oriented to person place and time he was able to move bilateral upper and lower extremities with no difficulty. Urinary Catheter Management Indwelling Urethral Catheter: Cath placed during this visit: no Results Labs CBC & Chem 7: 04/17/18 04:54 04/17/18 04:54 Imaging Imaging: Impressions Cervical Spine CT 04/16/18 20:23 CONCLUSION: 1. Moderate degenerative disc disease with slight reversal of normal cervical lordosis. 2. Incidental note made of left subclavian stent. Complex fluid collection in the left supraclavicular region. Chest X-Ray 04/16/18 20:23 CONCLUSION: Stable appearance of thoracic aortic stent graft. No new infiltrate. Head CT 04/16/18 20:23 CONCLUSION: 1. No acute intracranial abnormality. . Assessment and Plan (1) Syncope: Code(s): R55 - Syncope and collapse Status: Acute (2) Generalized weakness: Code(s): R53.1 - Weakness Status: Acute (3) CKD (chronic kidney disease) stage 3, GFR 30-59 ml/min: Code(s): N18.3 - Chronic kidney disease, stage 3 (moderate) Status: Chronic (4) Urinary retention: Code(s): R33.9 - Retention of urine, unspecified Status: Acute (5) MARIO ALBERTO (acute kidney injury): Code(s): N17.9 - Acute kidney failure, unspecified Status: Resolved Plan 73-year-old white male with history of urinary retention, hypertension, recent thoracic aortic dissection repair with revision at [facility] who was just seen in the emergency room on the for urinary retention and sent home with a Marin catheter we presents with unclear history of possible syncope Syncopeno significant arrhythmia on cardiac monitoring continue telemetry. Check 2D echo, check orthostatic blood pressures, they may be a confusion of what medication he should be taking at home as he came in with bag full of medication with discrepancy from his current recent discharge medication. medication education will be performed and we will throw away any medication he should not be on prior to discharge. Patient will benefit from home health care nursing visit for continued medication education and medication adherence. Abnormal urinalysis with culture not indicatedreviewed of old microbiology showed no growth of urine cultures. No signs of new infection. Will discontinue antibiotics. Hypertension history -restart lower dose of amlodipine and monitor orthostatic blood pressure Acute kidney injury superimposed on chronic kidney disease stage IIIcreatinine has improved with IV fluid hydration overnight, will stop IV fluid hydration. Avoid nephrotoxins. Hypokalemiareplete Recent diagnosis of urinary retentioncontinue with urinary catheter and Flomax and follow-up with outpatient urology. Home health care will be arranged for Marin care. Progress Note: Quality VTE Deep Vein Thrombosis/Pulmonary Embolism Present on Admission: No
--- NOTE | 2018-04-17 14:35 | P.DCO ---
Diagnosis (1) Syncope: Status: Acute (2) CKD (chronic kidney disease) stage 3, GFR 30-59 ml/min: Status: Chronic (3) Urinary retention: Status: Acute Home Health Nursing Order: Medication education-adverse effect and Marin catheter maintenance Home Health Aide Order: To assist in: police captain precinct and meal prep Instructions: Twice weekly Electric Tool Repairer Order: To evaluate: Living conditions/environment and Support services Case Management Consult Case Management Consult-Home Health: Yes I have seen patient Albaro Hazel on 04/17/18. My clinical findings support the need for the requested home health care services because: Need for psychosocial assistance I certify that my clinical findings support that this patient is homebound because: Need for psychosocial assistance
[2018-04-17] MEDS: amLODIPine 5 MG Tablet PO SCH (17:16)
[2018-04-18 08:30] LABS: Calcium 7.3 mg/dL (8.5-10.1); Carbon Dioxide 24.5 meq/L (21.0-32.0); Potassium 3.4 meq/L (3.5-5.1)
[2018-04-18 08:38] LABS: Albumin 2.3 g/dL (3.4-5.0); Calcium-Albumin Corrected 8.7 mg/dL (8.5-10.1)
[2018-04-18] MEDS: Senna/Docusate Sodium 8.6/50 MG Tablet PO SCH (09:07)
[2018-04-18] MEDS: amLODIPine 5 MG Tablet PO SCH (09:08)
--- NOTE | 2018-04-18 10:36 | P.PNIM ---
Subjective Interval history: Reports he feels much better. There is no complaints of any further dizziness. No shortness of breath palpitations or chest pain. Feels pretty good. Physical Exam Vital signs: Last Vital Signs Temp 98.4 F 04/18/18 08:00 Pulse 71 04/18/18 08:00 Resp 20 04/18/18 08:00 BP 142/84 H 04/18/18 08:00 Pulse Ox 100 04/18/18 08:00 Intake & Output 04/16/18 04/17/18 04/18/18 04/19/18 06:59 06:59 06:59 06:59 Intake Total 1200 / 1200 Output Total 700 / 700 700 / 700 Balance -700 / -700 500 / 500 Weight 72.121 kg Narrative: Well-nourished well-developed pleasant male in no acute distress laying in bed Cardiovascular regular rate and rhythm no murmurs Lungs relatively clear to auscultation bilaterally Abdomen soft nontender nondistended positive bowel sounds Extremities no cyanosis clubbing or edema Neurological exam alert and oriented to person place and time he was able to move bilateral upper and lower extremities with no difficulty. Urinary Catheter Management Indwelling Urethral Catheter: Cath placed during this visit: yes Urethral indwelling: Yes Reason for continuing: Acute urinary retention Insertion date: 04/13/18 Results Labs CBC & Chem 7: 04/17/18 04:54 04/18/18 07:43 Assessment and Plan (1) Syncope: Code(s): R55 - Syncope and collapse Status: Acute (2) CKD (chronic kidney disease) stage 3, GFR 30-59 ml/min: Code(s): N18.3 - Chronic kidney disease, stage 3 (moderate) Status: Chronic (3) Urinary retention: Code(s): R33.9 - Retention of urine, unspecified Status: Acute Plan 73-year-old white male with history of urinary retention, hypertension, recent thoracic aortic dissection repair with revision at [facility] who was just seen in the emergency room on the for urinary retention and sent home with a Marin catheter we presents with unclear history of possible syncope Syncopeno significant arrhythmia on cardiac monitoring continue telemetry. Check 2D echo, they may be a confusion of what medication he should be taking at home as he came in with bag full of medication with discrepancy from his current recent discharge medication. medication education will be performed and we will throw away any medication he should not be on prior to discharge. Patient will benefit from home health care nursing visit for continued medication education and medication adherence. Abnormal urinalysis with culture not indicatedreviewed of old microbiology showed no growth of urine cultures. No signs of new infection. Will discontinue antibiotics. Hypertension history -blood pressure controlled on lower dose of amlodipine ; will discontinue home labetalol. Suspect this may be causing his symptoms of dizziness with possible transient hypotension Acute kidney injury superimposed on chronic kidney disease stage IIIcreatinine has improved with IV fluid hydration overnight, will stop IV fluid hydration. Avoid nephrotoxins. Creatinine improved today 1.34 Hypokalemiareplete Recent diagnosis of urinary retentioncontinue with urinary catheter and Flomax and follow-up with outpatient urology. Home health care will be arranged for Marin care. Discharge patient to home based on review of final 2D echo results Condition on discharge: Improved Regular Diet as tolerated Ad Twila activity Rx written: Norvasc 5 mg p.o. daily Flomax 0.4 mg p.o. daily Stop home Cipro and labetalol Continue with aspirin 81 mg p.o. daily Follow-up with primary care physician Follow-up with urology, Dr. Garcia Progress Note: Quality VTE Deep Vein Thrombosis/Pulmonary Embolism Present on Admission: No
[2018-04-18 12:45] VITALS: BP 123/80; PULSE 77; RESP 18; TEMP 98.5; O2SAT 99
--- NOTE | 2018-04-18 14:59 | ECHRPT ---
Indication: SYNCOPE CONCLUSIONS The left ventricular systolic function is normal with an estimated ejection fraction in the range of 55-60%. Doppler parameters are consistent with impaired left ventricular relaxtion (grade 1 diastolic dysfun ction). There is trace tricuspid valve regurgitation. Trivial pulmonary valve regurgitation. BP: / HR: Rhythm: Technical Quality: FINDINGS LEFT VENTRICLE Normal left ventricular size. Wall thickness is measured at the upper limits of normal. The left ventricular systolic function is normal with an estimated ejection fraction in the range of 55-60%. Doppler parameters are consistent with impaired left ventricular relaxtion (grade 1 diastolic dysfun ction). RIGHT VENTRICLE Normal right ventricular size and systolic function. LEFT ATRIUM The left atrial size is mildly dilated. RIGHT ATRIUM The right atrial size is normal. ATRIAL SEPTUM Normal atrial septal thickness without atrial level shunting by limited color doppler interrogation. AORTA The aortic root and proximal ascending aorta are normal in size on limited imaging. MITRAL VALVE Structurally normal mitral valve. No mitral valve regurgitation. No mitral valve stenosis. AORTIC VALVE Trileaflet aortic valve. No aortic valve stenosis or regurgitation. TRICUSPID VALVE Structurally normal tricuspid valve. There is trace tricuspid valve regurgitation. No tricuspid valve stenosis. The estimated pulmonary arterial pressure is 25 mmHg. PULMONARY VALVE Trivial pulmonary valve regurgitation. VESSELS The inferior vena cava is normal in size. PERICARDIUM No pericardial effusion. Eben Post DO (Electronically Signed) Final Date:18 April 2018 14:58
--- NOTE | 2018-04-18 15:47 | P.DCO ---
Diagnosis (1) Syncope: Status: Acute (2) CKD (chronic kidney disease) stage 3, GFR 30-59 ml/min: Status: Chronic (3) Urinary retention: Status: Acute Home Health Nursing Order: Medication education-adverse effect, Nursing assessment with vital signs and [place] catheter maintenance Home Health Aide Order: To assist in: billing representative and meal prep Box Spinner Order: To evaluate: Living conditions/environment and Support services Case Management Consult Case Management Consult-Home Health: Yes I have seen patient Albaro Hazel on 04/18/18. My clinical findings support the need for the requested home health care services because: Need for psychosocial assistance I certify that my clinical findings support that this patient is homebound because: Need for psychosocial assistance
== END 2018-04-18 17:17 | disposition home health service (06) ==
LOC: NEDA 17:02 → NEPC 17:02 → NEPGCP 04-17 00:53
PROVIDERS: ADMIT Family Medicine; ATTEND Family Medicine
CPT/HCPCS: 70450; 71010; 71045; 72125; 80048; 80053; 81001; 82040; 85025; 85610; 85730; 93005; 93306; 96360; 96361; 97163; 99285; G0378; G8987; G8988; J7030